=== PATIENT | male | born 1965 | race Caucasian/White ===

== ENCOUNTER → 2017-09-07 15:43 | Outpatient (CLI) | payer BC, SELFPAY | PROVIDERS: PCP Internal Medicine; Visit Provider Internal Medicine | DX: R07.9 Chest pain, unspecified (principal); R06.02 Shortness of breath | CPT/HCPCS: 93005 ==

== ENCOUNTER → 2017-09-08 07:37 | Outpatient (CLI) | payer BC, SELFPAY ==
--- NOTE | 2017-09-08 07:42 | XR_ITS ---
XR chest 2V HISTORY: ITS.REASON: CHEST PAIN, DYSPNEA ORDERING PHYSICIAN: Marvel Avalos PATIENT AGE: 52 years COMPARISON: None FINDINGS: The cardiomediastinal silhouette and pulmonary vascularity are within normal limits. The lungs are clear without infiltrates, suspicious nodules, or pleural effusions. No acute bony abnormalities. IMPRESSION: Negative chest, no acute finding
== END ==
PROVIDERS: Family Provider Internal Medicine; PCP Internal Medicine; Visit Provider Internal Medicine
DX: R07.9 Chest pain, unspecified (principal); R06.09 Other forms of dyspnea
CPT/HCPCS: 71046; 93017

== ENCOUNTER 2020-02-07 18:36 | Emergency (ER) | payer BC, SELFPAY ==
[2020-02-07 18:48] VITALS: BP 134/104; PULSE 107; RESP 16; TEMP 36.6; O2SAT 98; BMI 32.3
--- NOTE | 2020-02-07 18:48 | XR_ITS ---
PROCEDURE: XR HAND LT MIN 3V CLINICAL INDICATION: laceration Pain COMPARISON: No exams were available for comparison FINDINGS: There is a transverse fracture involving the base of the proximal phalanx of the thumb along the dorsal and ulnar margin. Bandage artifact is present at the 2nd finger. Cortical regularity involves the distal aspect of the 3rd metacarpal which may be seen with avascular necrosis. There is a faint metallic density in the thenar eminence region measuring 2 mm consistent with a foreign body. Other findings:None. IMPRESSION: Nondisplaced fracture proximal phalanx of the thumb with associated small metallic foreign body at the thenar eminence Dictated by: Trey Almanza MD 02/08/2020 05:23 Trey Almanza MD in [place] 02/08/2020 05:23
--- NOTE | 2020-02-07 18:53 | HMH.EDWNDL ---
ED Disposition Clinical Impression: Open fracture of first metacarpal bone of left hand Qualifiers: Encounter type: initial encounter Metacarpal location: base Fracture morphology: other fracture Fracture alignment: nondisplaced Qualified Code(s): S62.235B - Other nondisplaced fracture of base of first metacarpal bone, left hand, initial encounter for open fracture Disposition: Home, Self-Care Condition on Discharge: Good Instructions: DI for Laceration Repair Prescriptions: Amoxicillin/Potassium Clav [Augmentin 875-125 Tablet] 1 tab PO Q12H 7 Days #14 tab Transmission Status: Pending to [id number] Hydrocodone/Acetaminophen [[place] 7.5-325 Tablet] 1 tab PO TID PRN #12 tab PRN Reason: Moderate Pain Prescription Printed Referrals: Marvel Avalos [Primary Care Provider] - Cameron Gaxiola MD [Referring] - - Critical Care Critical Care Time: No Attestation: On 02/07/20, the high probability of a clinically significant, sudden or life threatening deterioration of the following system(s) required my full and direct attention, intervention and personal management. The time I documented below is in addition to time spent performing reported procedures but includes the following listed in this critical care notation. Medical Decision Making - Medical Records Medical records reviewed: Yes: I reviewed the patient's medical records. - Salvador Inquiry Pt receiving controlled substance: Yes Salvador was queried for this patient: No Reason not queried -: Emergent pt cond-no time Risks and benefits of using a controlled substance: were discussed with pt by me Vital Signs: 02/07/20 18:48 02/07/20 19:30 Temperature 98 F Temperature Source Oral Pulse Rate [Radial] 107 H 95 H Respiratory Rate 16 17 Blood Pressure [Right Arm] 134/104 H 134/83 Blood Pressure Mean [Right Arm] 114 100 Blood Pressure Source [Right Arm] Automatic Cuff Blood Pressure Position [Right Arm] Sitting Supine 02 Sat by Pulse Oximetry 98 99 Oxygen Delivery Method Room Air Room Air Orders (Tests/Meds): ED MEDICATIONS Discontinued Medications Generic Name Dose Route Start Last Admin Trade Name Freq PRN Reason Stop Dose Admin Hydrocodone Bitart/Acetaminophen 1 tab 02/07/20 18:48 02/07/20 19:02 Apap/Hydrocodone 325mg/7.5mg Tab PO 10/22/20 18:49 1 tab ONCE ONE Administration Cefazolin Sodium 1 gm 02/07/20 20:09 02/07/20 20:14 Cefazolin 1gm Vial IM 02/07/20 20:10 1 gm ONCE ONE Administration Protocol Ondansetron HCl 4 mg 02/07/20 20:13 02/07/20 20:20 Ondansetron 4mg/2ml Vial IV 02/07/20 20:14 Not Given ONCE ONE Ondansetron HCl 4 mg 02/07/20 20:19 02/07/20 20:20 Ondansetron 4mg Odt SL 02/07/20 20:20 4 mg ONCE ONE Administration Tetanus/Reduced Diphtheria/Acell Pertussis 0.5 ml 02/07/20 18:48 02/07/20 19:00 Tet/Diphth/Pert-Adult 0.5ml Syringe IM 02/07/20 18:49 0.5 ml .ONCE ONE Administration ORDERS Category Date Time Status XR hand LT min 3V Stat Exams 02/07/20 18:48 Taken - Radiology Data #1 Image(s): Hand Image Reviewed: Yes I reviewed the patient's radiology results Fracture of the base of the first metacarpal - Reevaluation(s) Time: 20:22 Reevaluation #1: Patient does have evidence of open fracture. I did speak with orthopedic surgeon on-call at [facility]. They have arranged for emergent follow-up with Dr. Gaxiola in the hand clinic tomorrow morning. Patient will be made n.p.o. at midnight. I will loosely approximate the skin. Thoroughly irrigated. Given 1 g Ancef in the emergency department. Sterile dressing placed. Patient must obtain follow-up or return to the emergency department immediately. Verbalized understanding. Medical Decision Narrative: Patient has lacerations to the left hand that will require suture repair. Patient appears to have full range of motion. No evidence of tendon laceration. X-ray will be obtained. Tet
[2020-02-07 19:30] VITALS: BP 134/83; PULSE 95; RESP 17; O2SAT 99
[2020-02-07 20:48] VITALS: BP 134/83; PULSE 93; RESP 15; TEMP 36.6; O2SAT 93
== END 2020-02-07 20:52 | disposition home or self-care (01) ==
PROVIDERS: Emergency Provider Emergency Medicine; PCP Internal Medicine
DX: S62.235B Other nondisplaced fracture of base of first metacarpal bone, left hand, initial encounter for open fracture (principal); S61.012A Laceration without foreign body of left thumb without damage to nail, initial encounter; S61.211A Laceration without foreign body of left index finger without damage to nail, initial encounter; W31.89XA Contact with other specified machinery, initial encounter; Y92.89 Other specified places as the place of occurrence of the external cause; Z23 Encounter for immunization; I10 Essential (primary) hypertension; Z79.899 Other long term (current) drug therapy
CPT/HCPCS: 12002; 73130; 90715; 96372; 99282

== ENCOUNTER → 2021-07-13 12:11 | Outpatient (CLI) | payer BC, SELFPAY | PROVIDERS: PCP Internal Medicine; Visit Provider Internal Medicine | DX: G47.33 Obstructive sleep apnea (adult) (pediatric) (principal); I10 Essential (primary) hypertension; R06.83 Snoring | CPT/HCPCS: G0399 ==

== ENCOUNTER → 2022-06-04 16:13 | Outpatient (CLI) | payer BC, SELFPAY ==
--- NOTE | 2022-06-04 16:16 | XR_ITS ---
FINAL REPORT CLINICAL HISTORY: LT SHOULDER PAIN FINDINGS: Internal and external rotation views of the left shoulder were obtained. There is no prior exam for comparison. There is no fracture or dislocation. There is acromioclavicular joint degenerative disease with a calcification along the superior joint. Soft tissues are normal. IMPRESSION: Degenerative disease with no acute osseous abnormality of the left shoulder. Reviewed, Interpreted and Dictated by Marianne Cavazos MD Transcribed by Marcela Johnson Authenticated and [facility]
== END ==
PROVIDERS: PCP Internal Medicine; Visit Provider Internal Medicine
DX: M25.512 Pain in left shoulder (principal)
CPT/HCPCS: 73030

== ENCOUNTER → 2023-02-22 14:47 | Outpatient (POV) | payer BC, SELFPAY | PROVIDERS: Visit Provider Specialist/Technologist | DX: Z00.00 Encounter for general adult medical examination without abnormal findings (principal) ==

== ENCOUNTER 2023-09-12 11:18 | Emergency (ER) | payer BC, SELFPAY ==
[2023-09-12] VITALS (9 sets, daily range): BP systolic 118–133; BP diastolic 77–90; PULSE 71–77; RESP 16–20; TEMP -6.6–36.8; O2SAT 96–100; BMI 31.0
--- NOTE | 2023-09-12 11:39 | CT_ITS ---
PROCEDURE INFORMATION: Exam: CT Abdomen And Pelvis Without Contrast Exam date and time: 09/12/2023 11:49 AM Age: 58 years old Clinical indication: Abdominal pain; Flank; Right; Additional info: R flank/cva pain, poss stone TECHNIQUE: Imaging protocol: Computed tomography of the abdomen and pelvis without contrast. Radiation optimization: All CT scans at this facility use at least one of these dose optimization techniques: automated exposure control; mA and/or kV adjustment per patient size (includes targeted exams where dose is matched to clinical indication); or iterative reconstruction. COMPARISON: DX CXR2V XR chest 2V 09/08/2017 7:45 AM FINDINGS: Liver: Normal. No mass. Gallbladder and bile ducts: Cholecystectomy Pancreas: Normal. No ductal dilation. Spleen: Normal. No splenomegaly. Adrenal glands: Normal. No mass. Kidneys and ureters: 3.5 millimeter distal RIGHT ureteral calculus causes dilatation of the RIGHT ureter, and RIGHT collecting system. The RIGHT kidney is edematous and there is RIGHT perirenal stranding. Nonobstructing renal calculi bilaterally Stomach and bowel: Unremarkable. No obstruction. No mucosal thickening. Appendix: No evidence of appendicitis. Intraperitoneal space: Unremarkable. No free air. No significant fluid collection. Vasculature: Unremarkable. No abdominal aortic aneurysm. Lymph nodes: Unremarkable. No enlarged lymph nodes. Urinary bladder: Unremarkable as visualized. Reproductive: Unremarkable as visualized. Bones/joints: Unremarkable. No acute fracture. Soft tissues: Unremarkable. IMPRESSION: 3.5 millimeter distal RIGHT ureteral calculus causes dilatation of the RIGHT ureter, and RIGHT collecting system. The RIGHT kidney is edematous and there is RIGHT perirenal stranding.
--- NOTE | 2023-09-12 11:40 | ED_ITS ---
Discharge Plan Disposition Patient Disposition: Home, Self-Care Condition: Good Prescriptions Prescriptions: New ketorolac 10 mg tablet 10 mg PO Q8H PRN (Reason: pain) Qty: 30 0RF Rx Instructions: maximum total duration of 5 days from all oral, intranasal, or parenteral formulations tamsulosin 0.4 mg capsule 0.4 mg PO DAILY Qty: 14 0RF ondansetron 4 mg tablet,disintegrating 4 mg PO Q8H PRN (Reason: nausea and vomiting) 5 Days Qty: 14 0RF oxycodone-acetaminophen [Percocet] 5-325 mg tablet 1 tab PO TID PRN (Reason: pain) Qty: 10 0RF No Action lisinopril 10 mg tablet 20 mg PO 90 Days azelastine 137 mcg (0.1 %) aerosol,spray 1 spray intranasal BID Qty: 30 2RF Rx Instructions: administer into each nostril levocetirizine [Xyzal] 5 mg tablet 5 mg PO DAILY Qty: 30 2RF allopurinol 300 mg tablet 300 mg PO 90 Days hydroxychloroquine 200 mg tablet PO Patient Comments: TAKE 1 TABLET BY MOUTH TWICE DAILY Vivitrol 380 mg suspension,extended rel recon IM Patient Comments: INJECT 380MG INTRAMUSCULARLY EVERY 28 DAYS meloxicam 7.5 mg tablet 7.5 mg PO DAILY Patient Comments: TAKE 1 TABLET BY MOUTH ONCE DAILY WITH FOOD Referrals Follow up/Referrals: Marvel Avalos MD [Primary Care Provider] - See instructions Satya Dejesus MD [Staff Physician] - See instructions Activity Restrictions/Add. Instructions Additional Instructions/Restrictions: You were seen in the ED today due to kidney stone. You have a 3.5 mm right distal ureter stone with back up into the kidney. Please stay hydrated at home. Take Toradol and Tylenol for pain. Small amount of painkillers has been provided for breakthrough pain. Follow-up with urology. Return to the ED if any symptoms worsen or if new concerning symptoms arise. Thank you. Clinical Impressions Clinical Impression: Kidney stone on right side Instructions Patient Instructions: DI for Kidney Stones Discharge ED Provider: Federico Rodríguez General Adult HPI General Chief complaint: PAIN Stated complaint: Pain Lower right back pain, trouble urinating Time Seen by Provider: 09/12/23 11:34 Mode of Arrival: Ambulatory Source of Information: Patient Limitations: No Limitations Description of Symptoms (Recalled from ER Triage Doc. by RN): Patient presents to ED with right side flank pain that started last night. patient reports pain and burning while urinating. Patient has hx of kidney stones in the past. Rates pain 8/10 at this time. History of Present Illness HPI narrative: Patient is a 58-year-old male with history of HTN who presents due to flank and back pain. Patient's is present to help provide history. Patient reports for the past 2 weeks he has been having intermittent right-sided back pain. Last night he began to have pain with urination and difficulty urinating. States the pain has also began to wrap around his right flank. States he has had nausea but no vomiting. Denies any fevers. Reports history of kidney stones, most recently approximately 10 years ago. Denies any urologic procedures for kidney stones in the past. Denies any hematuria. Related Data Home Medications Medication Instructions Recorded Confirmed allopurinol 300 mg tablet 300 mg PO 90 days 10/18/17 07/13/23 hydroxychloroquine 200 mg tablet ea PO 05/26/22 07/13/23 lisinopril 10 mg tablet 20 mg PO 90 days 09/29/22 07/13/23 meloxicam 7.5 mg tablet 7.5 mg PO DAILY 03/22/23 07/13/23 naltrexone microspheres 380 mg mg IM 03/22/23 07/13/23 intramuscular suspension,extended release (Vivitrol) Previous Rx's Medication Instructions Recorded azelastine 137 mcg (0.1 %) nasal 1 spray intranasal BID #30 mL 02/15/23 spray aerosol levocetirizine 5 mg tablet (Xyzal) 5 mg PO DAILY #30 tabs 02/15/23 ketorolac 10 mg tablet 10 mg PO Q8H PRN pain #30 tabs 09/12/23 ondansetron 4 mg disintegrating 4 mg PO Q8H PRN nausea and 09/12/23 tablet vomiting 5 days #14 tabs oxycodone-acetaminophen 5 mg-325 1 tab PO TID PRN pain #10 tabs 09/12/23 mg tablet (Percocet) tamsulosin 0.4 mg capsule 0.4 mg PO DAILY #14 caps 09/12/23 Allergies Allergy/AdvReac Type Severity Reaction Status Date / Time NO KNOWN ALLERGIES Allergy Uncoded 07/13/23 16:12 [facility] Disclaimer: The information contained in this section may have been updated after the patient was seen, as this information can be updated by other users. 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 Dysfunction of both eustachian tubes Bilateral serous otitis media Tinnitus Dizziness Hypertension Surgical History History of ear surgery Social History Smoking Status: Never smoker alcohol intake: current alcohol intake frequency: holidays/special occasions only substance use type: denies use current occupational status: employed Travel in the last 8 weeks: None household members: family housing: house current occupation: construction ROS Obtained: Yes All systems reviewed & no additional complaints except as documented Physical Exam General General appearance: alert and in no apparent distress Head Head exam: atraumatic, normocephalic and normal inspection Eye Eye exam: Present normal appearance, PERRL and EOMI ENT ENT exam: Present normal exam, normal oropharynx, mucous membranes moist, TM's normal bilaterally and normal external ear exam Neck Neck exam: Present normal inspection, full ROM and trachea midline; Absent meningismus or lymphadenopathy Chest Chest inspection: Present normal inspection and symmetric chest wall rise; Absent tenderness Respiratory Respiratory exam: Present normal lung sounds bilaterally; Absent respiratory distress Cardiovascular Cardiovascular exam: Present regular rate and normal rhythm; Absent JVD Abdominal Exam Abdominal exam: Present soft and normal bowel sounds; Absent distention, tenderness or guarding Extremities Exam Extremities exam: Present normal inspection, full ROM and normal capillary refill; Absent calf tenderness Back Exam Back exam: Present normal inspection and CVA tenderness (R); Absent tenderness Neurological Exam Neurological exam: Present alert and oriented X3 Psychiatric Psychiatric exam: Present normal affect and normal mood Skin Skin exam: Present warm, dry, intact and normal color Lymphatic Lymphatic Findings: no adenopathy Medical Decision Making Medical Records Medical records reviewed: Yes I reviewed the patient's medical records. [place] Inquiry Pt receiving controlled substance: No Vital Signs: 09/12/23 11:19 09/12/23 11:30 09/12/23 12:00 Temperature 98.3 F 20 F L Temperature Source Oral Pulse Rate 75 76 Pulse Rate [Right Radial] 77 Respiratory Rate 18 18 Blood Pressure 125/77 120/82 Blood Pressure [Right Arm] 131/82 Blood Pressure Mean Blood Pressure Mean [Right Arm] 98 Blood Pressure Source Blood Pressure Source [Right Arm] Automatic Cuff Blood Pressure Position Blood Pressure Position [Right Arm] Sitting 02 Sat by Pulse Oximetry 97 96 97 Oxygen Delivery Method Room Air Room Air Room Air 09/12/23 12:30 09/12/23 13:00 09/12/23 13:30 Temperature Temperature Source Pulse Rate 72 71 71 Pulse Rate [Right Radial] Respiratory Rate 18 18 20 Blood Pressure 123/86 118/89 119/86 Blood Pressure [Right Arm] Blood Pressure Mean Blood Pressure Mean [Right Arm] Blood Pressure Source Blood Pressure Source [Right Arm] Blood Pressure Position Blood Pressure Position [Right Arm] 02 Sat by Pulse Oximetry 98 100 97 Oxygen Delivery Method Room Air Room Air Room Air 09/12/23 14:01 09/12/23 14:30 09/12/23 14:49 Temperature 98.1 F Temperature Source Oral Pulse Rate 74 75 75 Pulse Rate [Right Radial] Respiratory Rate 18 16 Blood Pressure 130/90 133/87 133/87 Blood Pressure [Right Arm] Blood Pressure Mean 102 Blood Pressure Mean [Right Arm] Blood Pressure Source Automatic Cuff Blood Pressure Source [Right Arm] Blood Pressure Position Sitting Blood Pressure Position [Right Arm] 02 Sat by Pulse Oximetry 99 98 Oxygen Delivery Method Room Air Room Air Lab Data Lab Results 09/12/23 11:21: Urine Color Yellow, Urine Appearance Slightly cloudy, Urine pH 7.0, Ur Specific [place] 1.025, Urine Protein Negative, Urine Glucose (UA) Negative, Urine Ketones Negative, Urine Blood 1+, Urine Nitrate Negative, Urine Bilirubin Negative, Urine Urobilinogen 0.2, Ur Leukocyte Esterase Negative, Urine RBC 5-10, Urine WBC Occasional, Ur Squamous Epith Cells Occasional, Urine Bacteria Trace 09/12/23 11:25: WBC 10.9 H, RBC 4.99, Hgb 14.6, Hct 44.9, MCV 90.0, MCH 29.3, MCHC 32.6, RDW 14.5, Plt Count 228, MPV 9.0, Neut % (Auto) 75.5, Lymph % (Auto) 16.2, Sully % (Auto) 7.0, Eos % (Auto) 0.9, Baso % (Auto) 0.4, Neut # (Auto) 8.2 H, Lymph # (Auto) 1.8, Sully # (Auto) 0.8, Eos # (Auto) 0.1, Baso # (Auto) 0.0, Sodium 137, Potassium 4.1, Chloride 103, Carbon Dioxide 25, Anion Gap 13.1, BUN 17, Creatinine 1.40 H, Estimated Creat Clear 79, Estimated GFR 52 L, Est GFR ( Amer) 63, Glucose 104 H, Calcium 9.7, Total Bilirubin 0.4, AST 30, ALT 21, Alkaline Phosphatase 62, Total Protein 7.2, Albumin 4.3, Globulin 2.9, Albumin/Globulin Ratio 1.5 09/12/23 11:25 09/12/23 11:25 Orders (Tests/Meds): ED MEDICATIONS Discontinued Medications Generic Name Dose Route Start Last Admin Trade Name Freq PRN Reason Stop Dose Admin Hydromorphone HCl 0.5 mg 09/12/23 14:07 09/12/23 14:09 Hydromorphone 2mg/Ml Syringe IV 09/12/23 14:08 0.5 mg ONCE ONE Administration Lactated Ringer's 1,000 mls @ 999 mls/hr 09/12/23 11:39 09/12/23 11:56 Lactated Ringer's 1000 Ml Bag IV 09/12/23 12:39 999 mls/hr .Q1H1M ONE Administration Ketorolac Tromethamine 15 mg 09/12/23 11:39 09/12/23 11:56 Ketorolac 30mg/Ml Vial IV 09/12/23 11:40 15 mg ONCE ONE Administration Morphine Sulfate 4 mg 09/12/23 13:17 09/12/23 13:23 Morphine 4mg/Ml Syringe IV 09/12/23 13:18 4 mg ONCE ONE Administration Ondansetron HCl 4 mg 09/12/23 11:39 09/12/23 11:57 Ondansetron 4mg/2ml Vial IV 09/12/23 11:40 4 mg ONCE ONE Administration ORDERS Category Date Time Status CT abdomen pelvis wo con Stat Cat Scan 09/12/23 11:39 Completed CBC w/Auto Diff [Complete Blood Count Auto Diff] Stat Lab 09/12/23 11:25 Completed CMP [Comprehensive Metabolic Panel] Stat Lab 09/12/23 11:25 Completed Urinalysis and Microscopic Stat Lab 09/12/23 11:21 Completed Medical Decision Narrative: In summary, patient is 58-year-old male, evaluated in the emergency department today due to right flank and back pain. On arrival, patient is hemodynamically stable with normal vital signs. On examination, patient has right CVA tenderness. Differential diagnosis includes but is not limited to kidney stone, pyelonephritis, musculoskeletal strain, hydronephrosis. Patient given IV Toradol, IV Zofran, IV morphine, 1 L LR bolus. Workup initiated including CBC, CMP, urinalysis, CT Abdo/pelvis without contrast. Labs independently interpreted by me and significant for creatinine 1.4. Imaging independently interpreted by me and significant for CT abdomen/pelvis demonstrating 3.5 mm right distal ureteral calculus with upstream hydronephrosis and perinephric fat stranding. On reevaluation, patient's pain is not controlled. Patient given IV Dilaudid with resolution of pain. Given his acute kidney injury and hydronephrosis in setting of kidney stone, Dr. Dejesus, urology, consulted and case discussed. Per urology, patient is appropriate for discharge if his pain is controlled. In shared decision-making with patient and family, they are agreeable to this plan. Referral provided. Prescriptions for Toradol, Flomax, Percocet provided. Patient counseled on home care, given strict return precautions and agreeable to plan. Additional history was provided by family. I considered admitting the patient to the hospital for pain control, and in shared decision-making with patient and family, decided on outpatient management. Critical Care Critical Care Time Critical Care Time: No
[2023-09-12 11:42] LABS: Microscopic, Urine URINE MICROSCOPIC (MICROSCOPIC)
[2023-09-12 11:45] LABS: Chloride 103 mmol/L (98-107)
[2023-09-12 11:46] LABS: Bilirubin,Urine Negative (Negative); Blood, Urine 1+ (Negative); Color,Urine YELLOW (Yellow); Glucose,Urine (UA) Negative (Negative); Ketones,Urine Negative (Negative); Leukocyte Esterase,Urine Negative (Negative); Nitrate,Urine Negative (Negative); Protein,Urine Negative (Negative); Specific Gravity, Urine 1.025 (1.005-1.030); Urobilinogen,Urine 0.2 EU/dl (0.2)
[2023-09-12 11:46] LABS: Potassium 4.1 mmoL/L (3.5-5.1); Sodium 137 mmol/L (136-145)
[2023-09-12 11:49] LABS: Appearance,Urine Slightly Cloudy (Clear)
[2023-09-12 11:49] LABS: Alanine Aminotransferase 21 U/L (12-78); Albumin Level 4.3 g/dl (3.5-5.0); Albumin/Globulin Ratio 1.5 (1.1-1.8); Alkaline Phosphatase 62 U/L (38-126); Anion Gap 13.1 mEq/L (5-15); Aspartate Amino Transferase 30 U/L (17-59); Bilirubin,Total 0.4 mg/dl (0.2-1.3); Blood Urea Nitrogen 17 mg/dl (9-20); Calcium 9.7 mg/dl (8.4-10.2); Carbon Dioxide 25 mmol/L (22.0-30.0); Creatinine Clearance Estimated 79 mL/min (50-200); Estimated Glomerular Filt Rate 52 ml/min (>60); GFR (African American) 63 ML/MIN (>60); Globulin 2.9 g/dL (1.3-3.2); Glucose 104 mg/dl (74-100); Total Protein,Serum 7.2 g/dl (6.3-8.2)
[2023-09-12 11:56] LABS: Basophils % 0.4 % (0.1-2.0); Eosinophils # 0.1 K/mm3 (0.0-0.4); Eosinophils % 0.9 % (0.1-12.0); Hematocrit 44.9 % (42.0-52.0); Hemoglobin 14.6 g/dL (14.1-18.0); Lymphocytes # 1.8 K/mm3 (0.7-4.5); Lymphocytes % 16.2 % (10-50); Mean Corpuscular HGB Conc 32.6 g/dL (31.8-35.4); Mean Corpuscular Hemoglobin 29.3 pg (27.0-31.2); Monocytes # 0.8 K/mm3 (0.1-1.0); Neutrophils # 8.2 K/mm3 (1.8-7.8); Neutrophils % 75.5 % (37.0-80.0); Platelet Count 228 K/mm3 (142-424); Red Blood Count 4.99 M/mm3 (4.60-6.20); Red Cell Distribution Width 14.5 % (11.5-17.5); White Blood Count 10.9 K/mm3 (4.8-10.8)
[2023-09-12] MEDS: LACTATED RINGERS 1000ML 1,000 ML 999 ML IV (11:56)
[2023-09-12] MEDS: KETOROLAC 30MG/ML VIAL 15 MG IV (11:56)
[2023-09-12] MEDS: ONDANSETRON 4MG/2ML VIAL 4 MG IV (11:57)
[2023-09-12 12:03] LABS: Bacteria,Urine Trace /lpf; Squamous Epithelial Cell,Urine Occasional #/hpf (0-5); WBC,Urine Occasional #/hpf (0-3)
--- NOTE | 2023-09-12 13:14 | PC.NURSE ---
KOBE COLEMAN SPEAKING WITH DR ESCAMILLA WITH UROLOGY
[2023-09-12] MEDS: MORPHINE 4MG/ML SYRINGE 4 MG IV (13:23)
[2023-09-12] MEDS: HYDROMORPHONE 2MG/ML SYRINGE 0.5 MG IV (14:09)
--- NOTE | 2023-09-12 14:21 | PC.NURSE ---
rounded on pt, stated no needs at this time.
== END 2023-09-12 14:50 | disposition home or self-care (01) ==
PROVIDERS: Emergency Provider Student in an Organized Health Care Education/Training Program; PCP Internal Medicine
DX: R10.31 Right lower quadrant pain (principal); N20.0 Calculus of kidney; M54.59 Other low back pain; R30.0 Dysuria; I10 Essential (primary) hypertension
CPT/HCPCS: 74176; 80053; 81001; 85025; 96361; 96374; 96375; 99285; J2405; J7120

== ENCOUNTER 2024-08-08 14:05 | Outpatient (CLI) | payer BC, SELFPAY ==
--- NOTE | 2024-08-08 | CA_ITS ---
APPROVED REPORT EXAM: Comprehensive 2D, Doppler, and color-flow Echocardiogram Card Table Attendant: Vicenta Rosario, RCS, RVS Ht: 5 ft 9 in Wt: 231lbs BSA: 2.20 BP: 166/102 mmHg Indications: CP, SOB, Abn EKG, HTN, Fatigue, Palpitations Echo Enhancing Agent Comments: Poor acoustics due to chest circumference 2D Dimensions IVSd 1.14 cm LVEF (Visual) 49.70 % PWd 1.12 cm LA Volume 69.90 mL LVDd 4.76 cm LA Volume Index 31.80 mL/m2 (M/F) 16-34 LVDs 3.56 cm EF AP4 51.20 % Aortic Root 3.09 cm GL Strain -16.8 % Left Atrium 3.90 cm RVID Base (AP4) 3.86 cm (M/F) 2.5-4.1 LVOT 2.10 cm (M/F) 1.5-2.5 M-Mode Dimensions LVDd 4.76 cm (3.5-5.7) Ao Diam 2.82 cm (2.0-3.7) LVDs 3.56 cm (3.5-5.7) IVSd 1.14 cm (0.6-1.1) PWd 1.12 cm (0.6-1.1) EPSs 0.42 cm FS 25.20% TAPSE 2.00 (<1.7) LV Diastology E Decel Time 208 (160-240 msec) E/A Ratio 0.75 MED E' 6.0 (>= 7 cm/sec) MED A' 10.20 cm/s E'/MED E' Ratio 12.15 (<= 14) LAT E' 8.6 (>= 10 cm/sec) LAT A' 13.20 cm/s E/LAT E' Ratio 8.48 (<= 14) Aortic Valve LVOT Max 84.0 (70-110 cm/s) RADHA Index 1.49 cm2/m2 LVOT VTI 22.57 cm AoV Peak Yovany. 117.0 (50-130 cm/s) AO Peak GR. 7.00 mmHg AO Mean GR. 2.80 (<5 mmHg) AO VTI 23.8 (18-25 cm) RADHA (VTI) 3.28 (2.5-4.5 cm2) Mitral Valve MV E Max Yovany. 73.0 (40-130 cm/s) MV A Velocity 97.0 (40-130 cm/s) E/A Ratio 0.75 MV Decel. Time 208 (160-240 ms) Left Ventricle The left ventricle is normal size. The left ventricular systolic function is normal. The left ventricular ejection fraction is within the normal range. There is increased LV wall thickness. There is normal LV segmental wall motion. Transmitral Doppler flow pattern suggests impaired LV relaxation. LVEF is 55%. Right Ventricle The right ventricle is normal size. The right ventricular systolic function is normal. Atria Left atrium is mildly dilated. The right atrium size is normal. There is no Doppler evidence of interatrial shunt. Aortic Valve Aortic valve is mildly thickened. There is no aortic valvular stenosis. Trace aortic regurgitation. Mitral Valve The mitral valve is normal in structure. No evidence of mitral valve stenosis. Mild mitral regurgitation. Tricuspid Valve Tricuspid valve is grossly normal in structure and function. Trace tricuspid regurgitation. There is insufficient TR jet to estimate RVSP. Pulmonic Valve The pulmonary valve is normal in structure. Trace pulmonic regurgitation. Great Vessels The aortic root is normal in size. IVC is normal in size and collapses >50% with inspiration. Pericardium There is no pericardial effusion. An epicardial fat pad is present. Other Information Study Quality: Technically Difficult Conclusion Technically difficult study due to poor acoustic windows. Normal biventricular systolic function. Mild LA dilation. Mild MR. Electronically signed by : Naomy Renee MD 08/08/2024 22:56:47
== END 2024-08-08 23:59 | disposition home or self-care (01) ==
LOC: RT 14:06
PROVIDERS: PCP Internal Medicine; Visit Provider Physician Assistant
DX: R07.9 Chest pain, unspecified (principal); R94.31 Abnormal electrocardiogram [ECG] [EKG]; R06.00 Dyspnea, unspecified
CPT/HCPCS: 93306

== ENCOUNTER 2024-08-21 06:18 | Outpatient (CLI) | payer BC, SELFPAY ==
--- NOTE | 2024-08-21 | CA_ITS ---
APPROVED REPORT Exam: Pharmacologic Technologist: Tonya Brandon Ht: 5 ft 9 in Wt: 231 lbs BSA: 2.20 m2 HR: 62 bpm BP: 139/96 mmHg Stress Test Details Test: Lexiscan HR Resting HR: 62 bpm Max Heart Rate (APMHR): 163.684256 bpm Max HR Achieved: 84 bpm Target HR (85% APMHR): 138.768167 bpm % of APMHR: 51.53 Recovery HR: 72 bpm BP Resting BP: 139.0/96.0 mmHg Max BP: 140.0/95.0 mmHg Recovery BP: 133.0/97.0 mmHg ECG Resting ECG: Sinus rhythm Stress ECG Conclusion Symptoms: Dyspnea, dizziness, nausea Arrhythmias/Ectopy: None ST-T Changes: Less than 1 mm Conclusion: EKG unremarkable due to Lexiscan infusion. Electronically signed by : Naomy Renee MD 08/21/2024 12:15:49
--- OUTSIDE RECORDS SUMMARY | 2024-08-21 06:21 | XMS_ITS ---
Author Organization Unknown Medications Medication Instructions Effective Dates (start - stop) Status lisinopril 10 MG Oral Tablet 202 06-19-16:00:00.000+00 :00 - Completed allopurinol 300 MG Oral Tablet 2 [id number]:00:00.000+00 :00 - Completed metformin hydrochloride 500 MG Oral Tablet 4443-72-26Q78:00:00.000+00 :00 - Completed lisinopril 10 MG Oral Tablet 202 06-18-03:00:00.000+00 :00 - Completed amlodipine 5 MG Oral Tablet 2021:00:00.000+00 :00 - Completed naltrexone 380 MG Injection [Vivitrol] 4994-48-69J02:00:00.000+00 :00 - Completed meloxicam 7.5 MG Oral Tablet 06-22-16:00:00.000+00 :00 - Completed lisinopril 10 MG Oral Tablet 05-29-10:00:00.000+00 :00 - Completed meloxicam 7.5 MG Oral Tablet 06-19-24:00:00.000+00 :00 - Completed allopurinol 300 MG Oral Tablet 2 [id number]:00:00.000+00 :00 - Completed naltrexone hydrochloride 50 MG Oral Tablet 8222-37-73W74:00:00.000+00 :00 - Completed allopurinol 300 MG Oral Tablet 2 412-92-24E42:00:00.000+00 :00 - Completed lisinopril 10 MG Oral Tablet 05-26-07:00:00.000+00 :00 - Completed {21 (methylprednisolone 4 MG Oral Tablet) } Pack [id number]:00:00.000+00 :00 - Completed allopurinol 300 MG Oral Tablet 2 [id number]:00:00.000+00 :00 - Completed - 6800-30-96T77:00 :00.000+00 :00 - Completed {21 (methylprednisolone 4 MG Oral Tablet) } Pack [id number]:00:00.000+00 :00 - Completed hydroxychloroquine sulfate 2 00 MG Oral Tablet 7347-70-50E97:00:00.000+00 :00 - Completed phentermine hydrochloride 37 .5 MG Oral Tablet 2311-45-12B15:00:00.000+00 :00 - Completed hydroxychloroquine sulfate 2 00 MG Oral Tablet [id number]:00:00.000+00 :00 - Completed phentermine hydrochloride 37 .5 MG Oral Tablet [id number]:00:00.000+00 :00 - Completed hydroxychloroquine sulfate 2 00 MG Oral Tablet [id number]:00:00.000+00 :00 - Completed hydroxychloroquine sulfate 2 00 MG Oral Tablet [id number]:00:00.000+00 :00 - Completed hydroxychloroquine sulfate 2 00 MG Oral Tablet [id number]:00:00.000+00 :00 - Completed phentermine hydrochloride 37 .5 MG Oral Tablet [id number]:00:00.000+00 :00 - Completed hydroxychloroquine sulfate 2 00 MG Oral Tablet [id number]:00:00.000+00 :00 - Completed hydroxychloroquine sulfate 2 00 MG Oral Tablet [id number]:00:00.000+00 :00 - Completed hydroxychloroquine sulfate 2 00 MG Oral Tablet [id number]:00:00.000+00 :00 - Completed hydroxychloroquine sulfate 2 00 MG Oral Tablet [id number]:00:00.000+00 :00 - Completed allopurinol 300 MG Oral Tablet [id number]:00:00.000+00 :00 - Completed allopurinol 300 MG Oral Tablet 2 [id number]:00:00.000+00 :00 - Completed Patient Care team information Name Category Status Period Participants - - Proposed period not known -
--- OUTSIDE RECORDS SUMMARY | 2024-08-21 06:21 | XMS_ITS | Continuity of Care Document ---
Author Organization [facility] [address] Address [address] [place] [address] Care Team Providers Care Recruiting And Selection Consultant Name Role Phone RADHA CLAIRE Primary Care Provider Assessment No assessment recorded. Plan of Treatment Reminders Order Date Submit Date Provider Last Modified By Organization Details Last Modified Time Details Appointments RECHECK 2025 03:40P M PACO BYRNES MD Not available Not available Not available Lab None recorded . Referral None recorded . Procedures None recorded . Surgeries None recorded . Imaging None recorded . Medication Orders None recorded . Patient TargetsNo targets recorded. Patient InstructionsNo instructions recorded. Reason for Referral None Reported. Results Created Date Observation Date Name Description Value Unit Range Abnormal Flag Note LastModifiedBy Organization Detail LastModifiedTime 08/04/1908/01/2024 audio gram No observ ation record ed. BARCODE Not Available 2024 12:49:18 Result Notes None recorded. Problems No Known Problems Procedures Surgical History Date Name Laterality Status Provider Name and Address Organization Details Recorded Time 5 Tympanogram completed KATIANA THRASHER , AUD [address] [place], [address], [facility] 08/01/2024 15:45:30 5 Audiogram completed KATIANA THRASHER , AUD [address] [place], [address], [facility] 08/01/2024 15:45:28 5 Debridement Mastoid Cavity completed Allan Horton [facility] 08/01/2024 16:12:54 0 OT Manual Therapy cancelled CACHORRO HARTMAN, OTR/L, CHT [address] [place], [address], [facility] 02/18/2020 10:01:42 0 Orthotic, HFO, Static Custom completed CACHORRO HARTMAN OTR/L, CHT [address] [place], [address], [facility] 02/08/2020 11:04:03 0 OT Evaluation - Moderate complexity completed CACHORRO HARTMAN OTR/L, CHT [address] [place], [address], [facility] 02/08/2020 11:03:58 9 Injection Joint/Bursa, Small completed CHARU KRAMER MD [address] [place], [address], [facility] 05/22/2018 13:46:40 Imaging Results None recorded. Procedure Notes None recorded. Medical Equipment None Reported. Allergies No known drug allergies Medications Name Sig Start Date Stop Date Status Note LastModified by Organization Details LastModified Time metoprolol succinate ER 50 mg tablet,exte nded release 24 hr TAKE 1 TABLET BY MOUTH ONCE DAILY active Not Available Not Available No t Available meloxicam 15 mg tablet TAKE 1 TABLET BY MOUTH ONCE DAILY active Not Available Not Available No t Available naltrexone 50 mg tablet TAKE 1 TABLET BY MOUTH ONCE DAILY FOR ALCOHOL DEPENDENC Y 01/30 completed Not Available Not Available Not Available ketorolac 10 mg tablet TAKE 1 TABLET BY MOUTH EVERY 8 HOURS NEEDED FOR PAIN 11/15 completed Not Available Not Available Not Available meloxicam 7.5 mg tablet TAKE 1 TABLET BY MOUTH ONCE DAILY WITH FOOD CAN TAKE 1 ADDITIONA L TABLET DAILY IF NEEDED FOR FLAIR 01/30 completed Not Available Not Available Not Available oxycodone-a cetaminophe n 5 mg-325 mg tablet Take 1 tablet every 4-6 hours by oral route as needed. 11/15 completed Not Available Not Available Not Available ofloxacin 0.3 % ear drops INSTILL 4 TO 5 DROPS INTO AFFECTED EAR(S) TWICE DAILY FOR 7 DAYS 01/30 completed Not Available Not Available Not Available tamsulosin 0.4 mg capsule TAKE 1 CAPSULE BY MOUTH ONCE DAILY 11/15 completed Not Available Not Available Not Available cephalexin 500 mg capsule TAKE 1 CAPSULE BY MOUTH THREE TIMES DAILY 11/15 completed Not Available Not Available Not Available lisinopril 10 mg tablet TAKE 1 TABLET BY MOUTH ONCE DAILY active Not Available Not Available No t Available allopurinol 300 mg tablet TAKE 1 TABLET BY MOUTH ONCE DAILY active Not Available Not Available No t Available gabapentin 100 mg capsule Take 1 capsule every day by oral route at bedtime. 01/04 completed Not Available Not Available Not Available azelastine 137 mcg (0.1 %) nasal spray USE 1 SPRAY(S) IN EACH NOSTRIL TWICE DAILY 11/15 completed Not Available Not Available Not Available hydroxychlo roquine 200 mg tablet TAKE 1 TABLET BY MOUTH TWICE DAILY active Not Available Not Available No t Available methylpredn isolone 4 mg tablets in a dose pack TAKE BY MOUTH DIRECTED ON INSIDE OF PACKAGE 01/30 completed Not Available Not Available Not Available ondansetron 4 mg disintegrat ing tablet DISSOLVE 1 TABLET IN MOUTH EVERY 8 HOURS NEEDED FOR NAUSEA AND VOMITING FOR 5 DAYS 11/15 completed Not Available Not Available Not Available tadalafil 10 mg tablet TAKE 1 TABLET BY MOUTH ONCE DAILY active Not Available Not Available No t Available ibuprofen 02/07 completed Not Available Not Available Not Available naproxen 02/07 completed Not Available Not Available Not Available Glucosamine 02/07 completed Not Available Not Available Not Available Vivitrol 380 mg intramuscul ar suspension, extended release INJECT 380MG INTRAMUSC ULARLY EVERY 28 DAYS 11/15 completed Not Available Not Available Not Available fluocinolon e acetonide oil 0.01 % ear drops INSTILL 5 DROPS INTO THE RIGHT EAR CANAL BY OTIC ROUTE TWICE DAILY FOR 10 DAYS THEN NEEDED active Not Available Not Available No t Available levocetiriz ine 5 mg tablet TAKE 1 TABLET BY MOUTH ONCE DAILY 11/15 completed Not Available Not Available Not Available Bioflex 02/07 completed Not Available Not Available Not Available Vitals Date Recorded Body height Body mass index (BMI) Body weight Body temperature Heart rate Systolic blood pressure Diastolic blood pressure Provider Name and Address Organization Details Last Updated DateTime 5 177.8 cm 32.9 kg/m2 852565. 65 g 98.1 [degF] 71 /min 131 mm[Hg] 94 mm[Hg] Denisa Johnson [facility] 5 15:14:14 Social History Question Answer Notes LastModified by Organizat ion Details LastModified Time Tobacco Smoking Status Never Smoker Elaine Singer tosin, [facility] 05/22/2018 13:48:27 What Is Your Level Of Alcohol Consumption? 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 Right Information not available 05/22/2018 Which Hand Is Involved? Right Information not available 05/22/2018 Marital Status Informatio n not available 05/22/2018 What Was The Date Of Your Most Recent Tobacco Screening? 08/08/2018 Information not available 06/05/2019 Do You Use Any Illicit Or Recreational Drugs? No Information not available 05/22/2018 Sex: Male Functional Status None recorded. Mental Status None recorded. Family History Relationship Description Onset Age of this Age Resolved Age Notes LastModified by Organization Details LastModified Time Father No current problems or disability Not available 05/22 13:47:48 Mother No current problems or disability Not available 05/22 13:47:48 Medical History Condition Response Gout Y Kidney Stones Y Hyperthyroidism N Heart Arrhythmia N Emphysema N Esophagus/swallowing troubles N Glaucoma N Depression N Hypothyroidism N Lung Disease N Anesthesia Complications N Anxiety Disorder N Arthritis Y Hearing Loss Y Acid Reflux (GERD) Y Cancer N Stroke N Hoarseness N Alcohol Overuse/Alcohol Abuse N High Cholesterol N Snoring problems Y Liver Disease N Headaches N Kidney Disease N Allergies/Hayfever N Heart Problems N Mental handicap N Ear or Hearing Problems Y Gallbladder Disease N Migraines N Thyroid Problems N Goiter N Anemia N Immune System Disorder N Chest Pain N Stomach trouble N Ulcers N Heart Attack ([place]) N Diabetes N Rheumatic Fever N Bleeding Disorder N Tuberculosis N AIDS/HIV N Hyperlipidemia N Asthma N Epilepsy/Seizures N Sleep Disorder N Hepatitis N Heart Disease N Hypertension Y Immunizations Vaccine Type Date Status Note Provider Nam e and Address Organization Details Recorded Time Influenza, MDCK, quadrivalent, PF 04/02/2020 completed Jeanne Shad null, [facility] 01/31/2024 14:56:03 COVID-19 vaccine, vector-nr, rS-Ad26, PF, 0.5 mL 12/10/2020 completed Jeanne Sahd null, [facility] 01/31/2024 14:56:03 Tdap 02/07/2020 completed Jeanne Shad null, [facility] 01/31/2024 14:56:03 Influenza, split virus, quadrivalent, PF 01/19/2016 completed Jeanne Shad null, [facility] 01/31/2024 14:56:03 Influenza, split virus, quadrivalent, PF 01/20/2017 completed Jeanne Shad null, [facility] 01/31/2024 14:56:03 Past Encounters Encounter ID Performer Location Encounter Start Date Encounter Closed Date Diagnosis/Indication Diagnosis SNOMED-CT Code Diagnosis ICD10 Code Diagnosis Note [id number] PACO BYRNES MD [place] [facility] [address] [place] [address] 08/01/2024 14:56:13 08/07/2024 12:58:40 Dysfunction of left eustachian tube 4114177784 977825 H69.92 *01/06/24 S/p LMT Tube (T-tube) Placement with mastoid debridemen t- 01/31/[address] and patent, left TM is less retracted than it was before surgery; cavity is nice and clear today08/01- tube is present and patent Serous rocco tis media of left ear 1086279277 676047 H65.92 *01/06/24 S/p LMT Tube (T-tube) Placement Retraction of tympanic membrane 18106415 H73.899 severe- 01/31/24 retraction looks much better s/p LMT placement Eczema of external auditory canal 56964419 H60.549 Chronic le ft mastoiditis 8164902630 571092 H70.12 Asymmetric al sensorineural hearing loss 011545133 H90.5 08/01/24-a udiogram [id number] LIZA [facility] [address] [place] [address] 08/01/2024 15:26:08 08/01/2024 16:06:09 Dysfunction of bilateral eustachian tubes 9551774902 599391 H69.93 Conductive hearing loss, bilateral 453574898 H90.0 Health Concerns Section Related Observation LastModified by Organization Detai ls LastModified Time None Recorded Concern Status LastModified by Organization Details LastModified Time None Recorded Payers Encounter Date Sequence Insurance Name Policy Number Policy Irene Covered Member ID Irene Member ID Guarantor Name 08/01/2024 1 [place]) [id number] Marek Brown [id number] Marek Brown Notes Date Note Type Note Provider Name and Address Organization Details Recorded Time 08/01/2024 text/html Rodrigo visits us in office today to follow up on ETD and hearing loss. Pt has not presented with infection in either ear. He notes experiencing itching in the right ear recently. Pt does use Q-tips regularly to clean the ears. PACO BYRNES MD [facility] [place], [address], [place] [facility] 08/01/2024 16:18:52
--- OUTSIDE RECORDS SUMMARY | 2024-08-21 06:21 | XMS_ITS | Continuity of Care Document ---
[facility] [address] [place] [address] Care Team Providers Care Husker Operator Name Role Phone RADHA CLAIRE Primary Care Provider Assessment No assessment recorded. Plan of Treatment Reminders Order Date Submit Date Provider Last Modified By Organization Details Last Modified Time Details Appointments RECHECK 2025 03:40P M PACO BYRNES MD Not available Not available Not available Lab None recorded. Referral None recorded. Procedures None recorded. Surgeries None recorded. Imaging None recorded. Medication Orders DermOtic Oil 0.01 % ear drops 2024 04 025 [facility], [address], [address], 08/02/2024 11:06:32 Patient TargetsNo targets recorded. Patient Instructions Encounter Date Encounter Id Patient Instructions Last Modified By Organization Details Last Modified Time 08/01/2024 [id number] 1. Audiogram obtained in office today. Results discussed with patient. 2. Left Mastoid Debridement performed in office today Full risks, complications, and benefits of non-operative intervention have been thoroughly discussed. Understanding was expressed, informed consent given, and we will proceed with the discussed treatment plan. There were no questions for me at the end of the office visit. 3. Rx- Dermotic oil ear drops 5 drops into the right ear canal BID X 10 days, then prn 4. F/u in 12 months with audio [email or web address] Not available 08/01/2024 16:15:05 Hearing testing shows moderate conductive hearing loss in his left ear. He had debris in his mastoid cavity and simple debridement was performed. His left ear tube is in good position and functioning well. He is maximally treated at this point and should consider hearing aid for his left ear and we talked about that today. He has eczematous otitis externa of his right ear that we will treat with topical Derm otic and I counseled him about Q-tip use. Not available 08/01/2024 16:18:48 Reason for Referral None Reported. Results Created Date Observation Date Name Description Value Unit Range Abnormal Flag Note LastModifiedBy Organization Detail LastModifiedTime 08/04/19 25 08/01/2024 audio gram No observ ation record ed. BARCODE Not Available 2024 12:49:18 Result Notes None recorded. Problems No Known Problems Procedures Surgical History Date Name Laterality Status Provider Name and Address Organization Details Recorded Time 5 Tympanogram completed KATIANA THRASHER , AUD [address] [place], [address], [facility] 08/01/2024 15:45:30 5 Audiogram completed KATIANA THRASHER , AUD [address] [place], [address], [facility] 08/01/2024 15:45:28 5 Debridement Mastoid Cavity completed Allan Horton [facility] 08/01/2024 16:12:54 0 OT Manual Therapy cancelled CACHORRO HARTMAN OTR/L, CHT [address] [place], [address], [facility] 02/18/2020 10:01:42 0 Orthotic, HFO, Static Custom completed CACHORRO HARTMAN OTR/L, CHT [address] [place], [address], [facility] 02/08/2020 11:04:03 0 OT Evaluation - Moderate complexity completed CACHORRO HARTMAN OTR/L, CHT [address] [place], [address], [facility] 02/08/2020 11:03:58 9 Injection Joint/Bursa, Small completed CHARU KRAMER MD [address] [place], [address], [facility] 05/22/2018 13:46:40 Imaging Results None recorded. [...] Updated DateTime 5 177.8 cm 32.9 kg/m2 150859. 65 g 98.1 [degF] 71 /min 131 mm[Hg] 94 mm[Hg] Denisa Johnson [facility] 5 15:14:14 Social History Question Answer Notes LastModified by Organizat ion Details LastModified Time Tobacco Smoking Status Never Smoker Elaine leahy, [facility] 05/22/2018 13:48:27 What Is Your Level Of Alcohol Consumption? 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 05/22/2018 Which Of Your [...] Arrhythmia N Emphysema N Esophagus/swallowing troubles N Hypothyroidism N Glaucoma N Lung Disease N Depression N Anesthesia Complications N Anxiety Disorder N Hearing Loss Y Arthritis Y Acid Reflux (GERD) Y Cancer N Stroke N Hoarseness N Alcohol Overuse/Alcohol Abuse N High Cholesterol N Liver Disease N Snoring problems Y Headaches N Kidney Disease N Allergies/Hayfever N Heart Problems N Mental handicap N Ear or Hearing Problems Y Gallbladder Disease N Migraines N Thyroid Problems N Goiter N Anemia N Immune System Disorder N Chest Pain N Stomach trouble N Heart Attack ([place]) N Ulcers N Diabetes N Rheumatic Fever N Bleeding Disorder N Tuberculosis N AIDS/HIV N Hyperlipidemia N Asthma N Epilepsy/Seizures N Sleep Disorder N Hepatitis N Heart Disease N Hypertension Y Immunizations Vaccine Type Date Status Note Provider Nam e and Address Organization Details Recorded Time Influenza, MDCK, quadrivalent, PF 04/02/2020 completed [facility] 14:56:03 COVID-19 vaccine, vector-nr, rS-Ad26, PF, 0.5 mL 12/10/2020 completed [facility] 01/31/[facility]24 14:56:03 Tdap 02/07/2020 completed [facility] 01/31/2024 14:56:03 Influenza, split virus, quadrivalent, PF 01/19/2016 [facility] 01/31/2024 14:56:03 Influenza, split virus, quadrivalent, PF 01/20/2017 [facility] 01/31/[facility]24 14:56:03 Past Encounters Encounter ID Performer Location Encounter Start Date Encounter Closed Date Diagnosis/Indication Diagnosis SNOMED-CT Code Diagnosis ICD10 Code Diagnosis Note [id number] PACO BYRNES MD [facility] [address] [place] [address] 08/01/2024 14:56:13 08/07/2024 12:58:40 Dysfunction of left eustachian tube [id number] 177104 H69.92 *01/06/24 S/p LMT Tube (T-tube) Placement with mastoid debridemen t- 01/31/[address] and patent, left TM is less retracted than it was before surgery; cavity is nice and clear today08/01- tube is present and patent Serous rocco tis media of left ear 4432636960 586244 H65.92 *01/06/24 S/p LMT Tube (T-tube) Placement Retraction of tympanic membrane 36975107 H73.899 severe- 01/31/24 retraction looks much better s/p LMT placement Eczema of external auditory canal 48365617 H60.549 Chronic le ft mastoiditis 9957196458 674077 H70.12 Asymmetric al sensorineural hearing loss 918502291 H90.5 08/01/24-a udiogram [id number] LIZA [facility] [address] [place] [address] 08/01/2024 15:26:08 08/01/2024 16:06:09 Dysfunction of bilateral eustachian tubes 8154413171 210918 H69.93 Conductive hearing loss, bilateral 941314122 H90.0 Health Concerns Section Related Observation LastModified by Organization Detai ls LastModified Time None Recorded Concern Status LastModified by Organization Details LastModified Time None Recorded Payers Encounter Date Sequence Insurance Name Policy Number Policy Irene Covered Member ID Irene Member ID Guarantor Name 08/01/2024 1 [employer]: [place] [employer] ([place]) [id number] Marek Brown Jr [id number] Marek Brown Notes Date Note Type Note Provider Name and Address Organization Details Recorded Time 08/01/2024 text/html Rodrigo visits us in office today to follow up on ETD and hearing loss. Pt has not presented with infection in either ear. He notes experiencing itching in the right ear recently. Pt does use Q-tips regularly to clean the ears. PACO BYRNES MD [address] [place] [address], [address], [facility] 08/01/2024 16:18:52
--- OUTSIDE RECORDS SUMMARY | 2024-08-21 06:21 | XMS_ITS | Data Portability ---
Author Organization [facility] HARMAN HustonS CAMDEN CLOSED Address [address] [place] [address] Care Team Providers Care Steel Roller Name Role Phone RADHA CLAIRE Primary Care Provider Assessment No assessment recorded. Plan of Treatment Reminders Order Date Submit Date Provider Last Modified By Organization Details Last Modified Time Details Appointments RECHECK 2025 03:40P M PACO BYRNES MD Not available Not available Not available Lab None recorded. Referral None recorded. Procedures None recorded. Surgeries None recorded. Imaging electroca rdiogram 2023 024 [email or web address] [facility], [address] [facility] , [address], [place], [address], 12/16/2023 15:43:01 Medication Orders DermOtic Oil 0.01 % ear drops 2024 025 [facility], [address], [place], [address], 08/02/2024 11:06:32 Patient TargetsNo targets recorded. Patient Instructions Encounter Date Encounter Id Patient Instructions Last Modified By Organization Details Last Modified Time 11/16/2023 [id number] 1. Recommended L MT Tube (T-Tube) Placement Full risks, complications, and benefits of operative versus non-operative intervention have been thoroughly discussed. Understanding was expressed, informed consent given, and we will proceed with the discussed operative treatment plan. There were no questions for me at the end of the office visit. 2. F/u p/o Not available 11/16/2023 16:22:15 He has severe retraction and serous otitis media of his left ear and he has had multiple left ear surgeries and he has associated hearing loss. He would benefit from left ear tube placement with a long-term T-tube and we discussed surgery in detail today and he wishes to proceed. He wants to hold off on sinus surgery for his chronic sinusitis for now. We will obtain [facility] medical records [facility] including his hearing test Not available 11/16/2023 16:26:29 01/31/2024 [id number] 1. F/u in 6 fernando hs with audio. [email or web address] Not available 01/31/2024 15:07:13 He is doing well after left ear tube placement and left mastoid debridement. His retracted tympanic membrane is now in a better position and his tube is in good position and functioning well. Mastoid cavity is clean. Routine follow-up with hearing testing will be scheduled in 6 months. Not available 01/31/2024 15:10:28 08/01/2024 [id number] 1. Audiogram obtained in office today. Results [...] 4. F/u in 12 months with audio Not available 08/01/2024 16:15:05 Hearing testing shows [...] Abnormal Flag Note LastModifiedBy Organization Detail LastModifiedTime 12/16/19 24 12/16/2023 COMPL ETE BLOOD COUNT white blood cells 8.5 10*3/ uL 3.8-10 .8 normal Not Available [facility] [address] [place] [address], [address], 12/16/2023 18:24:31 12/16/19 24 12/16/2023 COMPL ETE BLOOD COUNT red blood cells 5.10 10*6/ uL 4.20-5 .80 normal Not Available [facility] [address] [place] [address], [address], 12/16/2023 18:24:31 12/16/19 24 12/16/2023 COMPL ETE BLOOD COUNT hemoglobin 14.8 g/dL 14.0-1 8.0 normal Not Available [facility] [address] [place] [address], [address], 12/16/2023 18:24:31 12/16/19 24 12/16/2023 COMPL ETE BLOOD COUNT hematocrit 44.2 % 40.0-5 2.0 normal Not Available [facility] [address] [place] [address], [address], 12/16/2023 18:24:31 12/16/19 24 12/16/2023 COMPL ETE BLOOD COUNT MCV 87 fL 80-100 normal Not Available [facility] [address] [place] [address], [address], 12/16/2023 18:24:31 12/16/19 24 12/16/2023 COMPL ETE BLOOD COUNT MCH 29 pg 26-35 normal Not Available [facility] [address] [place] [address], [address], 12/16/2023 18:24:31 12/16/19 24 12/16/2023 COMPL ETE BLOOD COUNT MCHC 34 g/dL 32-36 normal Not Available [facility] [address] [place] [address], [address], 12/16/2023 18:24:31 12/16/19 24 12/16/2023 COMPL ETE BLOOD COUNT RDW 14.0 % 11.0-1 5.0 normal Not Available [facility] [address] [place] [address], [address], 12/16/2023 18:24:31 12/16/19 24 12/16/2023 COMPL ETE BLOOD COUNT MPV 9.4 fL 6.2-10 .5 normal Not Available [facility] [address] [place] [address], [address], 12/16/2023 18:24:31 12/16/19 24 12/16/2023 COMPL ETE BLOOD COUNT platelet count 202 10*3/ uL 150-40 0 normal Not Available [facility] [address] [place] [address], [address], 12/16/2023 18:24:31 12/16/19 24 12/16/2023 COMPL ETE BLOOD COUNT neutrophil,a bsolute 5.0 10*3/ uL 1.6-8. 4 normal Not Available [facility] [address] [place] [address], [address], 12/16/2023 18:24:31 12/16/19 24 12/16/2023 COMPL ETE BLOOD COUNT lymphocyte,a bsolute 2.6 10*3/ uL 0.4-5. 1 normal Not Available [facility] [address] [place] [address], [address], 12/16/2023 18:24:31 12/16/19 24 12/16/2023 COMPL ETE BLOOD COUNT monocyte,abs olute 0.6 10*3/ uL 0.0-1. 2 normal Not Available [facility] [address] [place] [address], [address], 12/16/2023 18:24:31 12/16/19 24 12/16/2023 COMPL ETE BLOOD COUNT eosinophil,a bsolute 0.2 10*3/ uL 0.0-0. 8 normal Not Available [facility] [address] [place] [address], [address], 12/16/2023 18:24:31 12/16/19 24 12/16/2023 COMPL ETE BLOOD COUNT basophil,abs olute 0.1 10*3/ uL 0.0-0. 3 normal Not Available [facility] [address] [place] [address], [address], 12/16/2023 18:24:31 12/16/19 24 12/16/2023 COMPL ETE BLOOD COUNT % neutrophils 59.0 % 42.0-7 8.0 normal Not Available [facility] [address] [place] [address], [address], 12/16/2023 18:24:31 12/16/19 24 12/16/2023 COMPL ETE BLOOD COUNT % lymphocytes 30.6 % 11.0-4 7.0 normal Not Available [facility] [address] [place] [address], [address], 12/16/2023 18:24:31 12/16/19 24 12/16/2023 COMPL ETE BLOOD COUNT % monocytes 6.9 % 0.0-11 .0 normal Not Available [facility] [address] [place] [address], [address], 12/16/2023 18:24:31 12/16/19 24 12/16/2023 COMPL ETE BLOOD COUNT % eosinophils 2.8 % 0.0-7. 0 normal Not Available [facility] [address] [place] [address], [address], 12/16/2023 18:24:31 12/16/19 24 12/16/2023 COMPL ETE BLOOD COUNT % basophils 0.7 % 0.0-3. 0 normal Not Available [facility] [address] [place] [address], [address], 12/16/2023 18:24:31 12/16/19 24 12/16/2023 COMPL ETE BLOOD COUNT nucleated red cells 0.1 % 0.0-0. 9 normal Not Available [facility] [address] [place] [address], [address], 12/16/2023 18:24:31 12/16/19 24 12/16/2023 COMPL ETE BLOOD COUNT nucleated RBCs, absolute 0.01 10*3/ uL not estab. normal Not Available [facility] [address] [place] [address], [address], 12/16/2023 18:24:31 12/16/19 24 12/16/2023 COMP. METAB OLIC PANEL glucose 94 mg/dL 74-100 normal Not Available [facility] [address] [place] [address], [address], 12/16/2023 18:32:19 12/16/19 24 12/16/2023 COMP. METAB OLIC PANEL blood urea nitrogen 15 mg/dL 6-20 normal Not Available [facility] [address] [place] [address], [address], 12/16/2023 18:32:19 12/16/19 24 12/16/2023 COMP. METAB OLIC PANEL creatinine 0.96 mg/dL 0.70-1 .28 normal Not Available [facility] [address] [place] [address], [address], 12/16/2023 18:32:19 12/16/19 24 12/16/2023 COMP. METAB OLIC PANEL BUN/creatini ne ratio 16 (calc ) 10-20 normal Not Available [facility] [address] [place] [address], [address], 12/16/2023 18:32:19 12/16/19 24 12/16/2023 COMP. METAB OLIC PANEL sodium 139 mmol/ L 136-14 5 normal Not Available [facility] [address] [place] [address], [address], 12/16/2023 18:32:19 12/16/19 24 12/16/2023 COMP. METAB OLIC PANEL potassium 4.2 mmol/ L 3.4-5. 0 normal Not Available [facility] [address] [place] [address], [address], 12/16/2023 18:32:19 12/16/19 24 12/16/2023 COMP. METAB OLIC PANEL chloride 102 mmol/ L 98-107 normal Not Available [facility] [address] [place] [address], [address], 12/16/2023 18:32:19 12/16/19 24 12/16/2023 COMP. METAB OLIC PANEL carbon dioxide 24 mmol/ L 22-31 normal Not Available [facility] [address] [place] [address], [address], 12/16/2023 18:32:19 12/16/19 24 12/16/2023 COMP. METAB OLIC PANEL anion gap 13 (calc ) 7-25 normal Not Available [facility] [address] [place] [address], [address], 12/16/2023 18:32:19 12/16/19 24 12/16/2023 COMP. METAB OLIC PANEL calcium 9.6 mg/dL 8.6-10 .2 normal Not Available [facility] [address] [place] [address], [address], 12/16/2023 18:32:19 12/16/19 24 12/16/2023 COMP. METAB OLIC PANEL total protein 7.3 g/dL 6.4-8. 3 normal Not Available [facility] [address] [place] [address], [address], 12/16/2023 18:32:19 12/16/19 24 12/16/2023 COMP. METAB OLIC PANEL albumin 4.5 g/dL 3.5-5. 2 normal Not Available [facility] [address] [place] [address], [address], 12/16/2023 18:32:19 12/16/19 24 12/16/2023 COMP. METAB OLIC PANEL globulin 2.8 1.5-4. 5 normal Not Available [facility] [address] [place] [address], [address], 12/16/2023 18:32:19 12/16/19 24 12/16/2023 COMP. METAB OLIC PANEL albumin/glob ulin ratio 1.6 (calc ) 1.1-2. 5 normal Not Available [facility] [address] [place] [address], [address], 12/16/2023 18:32:19 12/16/19 24 12/16/2023 COMP. METAB OLIC PANEL bilirubin, total 0.4 mg/dL 0.1-1. 2 normal Not Available [facility] [address] [place] [address], [address], 12/16/2023 18:32:19 12/16/19 24 12/16/2023 COMP. METAB OLIC PANEL alkaline phosphatase 52 U/L 40-129 normal Not Available [facility] [address] [place] [address], [address], 12/16/2023 18:32:19 12/16/19 24 12/16/2023 COMP. METAB OLIC PANEL AST 18 U/L 0-40 normal Not Available [facility] [address] [place] [address], [address], 12/16/2023 18:32:19 12/16/19 24 12/16/2023 COMP. METAB OLIC PANEL ALT 21 U/L 0-41 normal Not Available [facility] [address] [place] [address], [address], 12/16/2023 18:32:19 12/16/19 24 12/16/2023 COMP. METAB OLIC PANEL GFR 92 >= 60 normal NOT E New calcu latio n for GFR (CKD- EPI 2020) is formu lated witho ut race adjus tment facto rs at the recom menda tion of the Natio nal Kidne y Found ation and Ameri can Socie ty of Nephr ology . This calcu latio n has not been valid ated in pregn ant women . For pedia portia patie nts refer to https ://orly w.corina chaudhryy.o rg/pr ofess ional s/KDO QI/gf r_cal culat orPed Not Available [facility] [address] [place], [address], 12/16/2023 18:32:19 12/16/19 24 12/16/2023 elect rocar diogr am No observ ation record ed. [email or web address] [facility] [address] [facility], [place], [address], 12/16/2023 15:43:34 12/16/19 24 12/16/2023 elect rocar diogr am No observ ation record ed. Not Available 01/01 12:49:15 08/04/19 25 08/01/2024 audio gram No observ ation record ed. BARCODE Not Available 2024 12:49:18 Result Notes None recorded. Problems No Known Problems Procedures Surgical History Date Name Laterality Status Provider Name and Address Organization Details Recorded Time 5 Tympanogram completed KATIANA THRASHER , AUD [address] [place], [address], [facility] 08/01/2024 15:45:30 5 Audiogram completed KATIANA THRASHER , AUD [address] [place], [address], [facility] 08/01/2024 15:45:28 5 Debridement Mastoid Cavity completed Allan Horton [facility] 08/01/2024 16:12:54 0 OT Manual Therapy cancelled CACHORRO HARTMAN, OTR/L, CHT [address] [place], [address], [facility] 02/18/2020 10:01:42 0 Orthotic, HFO, Static Custom completed CACHORRO HARTMAN, OTR/L, CHT [address] [place], [address], [facility] 02/08/2020 11:04:03 0 OT Evaluation - Moderate complexity completed CACHORRO HARTMAN OTR/L, CHT [address] [place], [address], [facility] 02/08/2020 11:03:58 9 Injection Joint/Bursa, Small completed CHARU KRAMER MD [address] [place], [address], [facility] 05/22/2018 13:46:40 Imaging Results Imaging Date Name Status LastModified by Organization Details LastModified Time 12/16/2023 electrocardiogram completed [facility] [address], [place], [address], 12/16/2023 15:43:34 12/16/2023 electrocardiogram completed Informa tion not available 01/02/2024 12:49:15 08/01/2024 audiogram completed BAR[facility] Information no t available 08/03/2024 12:49:18 Procedure Notes None recorded. Medical Equipment None [...] and Address Organization Details Last Updated DateTime 4 177.8 cm 29.9 kg/m2 36397.9 1 g 98.1 [degF] 94 /min 127 mm[Hg] 89 mm[Hg] Cayla Medina [facility] 4 15:03:47 Date Recorded Body height Body mass index (BMI) Body weight Body temperature Heart rate Systolic blood pressure Diastolic blood pressure Provider Name and Address Organization Details Last Updated DateTime 4 177.8 cm 31.3 kg/m2 67156.4 2 g 97.8 [degF] 67 /min 151 mm[Hg] 100 mm[Hg] Jeanne Shad [facility] 4 14:55:56 Date Recorded Body height Body mass index (BMI) Body weight Body temperature Heart rate Systolic blood pressure Diastolic blood pressure Provider Name and Address Organization Details Last Updated DateTime 5 177.8 cm 32.9 kg/m2 486063. 65 g 98.1 [degF] 71 /min 131 mm[Hg] 94 mm[Hg] Denisa Johnson [facility] 5 15:14:14 Social History Question Answer Notes LastModified by Organizat ion Details LastModified Time Tobacco Smoking Status Never Smoker Elaine leahy, [facility] 05/22/2018 13:48:27 What Is Your Level Of Alcohol Consumption? 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 Information not available 05/22/2018 Which Of Your [...] Arrhythmia N Emphysema N Esophagus/swallowing troubles N Depression N Anxiety Disorder N Arthritis Y Acid Reflux (GERD) Y Cancer N Stroke N Hoarseness N Snoring problems Y Headaches N Kidney Disease N Heart Problems N Mental handicap N Ear or Hearing Problems Y Gallbladder Disease N Migraines N Goiter N Ulcers N Rheumatic Fever N Bleeding Disorder N Tuberculosis N AIDS/HIV N Asthma N Sleep Disorder N Hepatitis N Glaucoma N Hypothyroidism N Lung Disease N Anesthesia Complications N Hearing Loss Y Alcohol Overuse/Alcohol Abuse N High Cholesterol N Liver Disease N Allergies/Hayfever N Thyroid Problems N Anemia N Immune System Disorder N Chest Pain N Stomach trouble N Heart Attack ([place]) N Diabetes N Hyperlipidemia N Epilepsy/Seizures N Heart Disease N Hypertension Y Immunizations Vaccine Type Date Status Note Provider Nam e and Address Organization Details Recorded Time Influenza, MDCK, quadrivalent, PF 04/02/2020 completed Jeanne [facility] 01/31/2024 14:56:03 COVID-19 vaccine, vector-nr, rS-Ad26, PF, 0.5 mL 12/10/2020 completed Jeannejamir Kulkarn[facility] 01/31/2024 14:56:03 Tdap 02/07/2020 completed [facility] 01/31/2024 14:56:03 Influenza, split virus, quadrivalent, PF 01/19/2016 completed Jeanne Sh[facility] 01/31/2024 14:56:03 Influenza, split virus, quadrivalent, PF 01/20/2017 completed Jeanne Kulkarn[facility] 01/31/2024 14:56:03 Past Encounters Encounter ID Performer Location Encounter Start Date Encounter Closed Date Diagnosis/Indication Diagnosis SNOMED-CT Code Diagnosis ICD10 Code Diagnosis Note [id number] CHARU KRAMER MD [facility] [address] [place] [address] 05/22/2018 12:33:17 05/23/2018 09:19:15 Idiopathic osteoarthritis 090209211 M19.91 Right long finger, Pain may have been initially triggered by a fall although he has idiopathic arthritis. Injection, Follow-up 6 weeks to consider further management .? Arthroscop y MP joint with debridemen t [id number] TANNER SIMPSON MD [facility] [address] [place] [address] 08/08/2018 15:08:22 08/08/2018 16:39:22 Arthritis of hand 307417612 M13.841 M13.842 X-rays of bilateral hands reveal moderate to severe arthritic changes involving bilateral long finger MCP joints. There are also mild arthritic changes involving the ring finger MCP joints as well as IP joints the hand. Mild to moderate arthritic changes within bilateral wrist as well. [id number] CHARU KRAMER MD [facility] [address] [place] [address] 02/08/2020 09:03:17 02/08/2020 09:45:19 Laceration of finger of left hand 8184955036 0282659 S61.211A Thumb and index finger from a grinder outside diameter [id number] CACHORRO HARTMAN, NICHOLER/L, CHT PHYSICAL THERAP[facility] [address] [place] [address] 02/08/2020 10:11:40 02/08/2020 11:15:01 Laceration of finger of left hand 1507510892 2158127 S61.211A [id number] CHARU KRAMER MD [facility] [address] [place] [address] 02/18/2020 13:54:31 02/18/2020 14:14:41 Laceration of finger of left hand 9508561217 6319707 S61.211A Thumb and index finger from a grinder outside diameter [id number] WILLA BROWN MD [facility] [address] [place] [address] 10/05/2022 14:31:41 10/05/2022 16:36:20 Pain of left shoulder joint 6120934887 8521063 M25.512 [id number] WILLA BROWN MD [facility] [address] [address] 10/07/2022 07:56:14 10/07/2022 08:53:46 Rupture of rotator cuff of left shoulder 2530811480 1707930 M75.102 supraspina tus and subscapula ris [id number] WILLA BROWN MD [facility] [address] [place] [address] 11/22/2022 15:49:29 11/22/2022 17:15:20 Rupture of rotator cuff of left shoulder 9023576175 3905106 M75.102 supraspina tus and infraspina tus Traumatic rupture of biceps tendon 063515202 S46.212A [id number] WILLA BROWN MD SURGERY SCHEDULE [address] [place] [address] 12/22/2022 08:18:29 12/22/2022 08:19:08 [id number] [facility]INA [facility] [address] [place] [address] 01/04/2023 09:17:42 01/04/2023 09:58:53 Postoperative care [id number] Z48.89 [id number] [facility] [address] [address] 01/25/2023 08:49:55 01/25/2023 09:24:07 Postoperative care 016076956 Z48.89 5 weeks s/p left shoulder arthroscop y with rotator cuff repair, biceps tenotomy of fragment, and debridemen t labrum (DOS: 12/22/2022) [id number] WILLA BROWN MD [facility] [address] [address] 03/01/2023 08:25:09 03/01/2023 09:29:05 Postoperative care 208937320 Z48.89 10 weeks s/p left shoulder arthroscop y with rotator cuff repair, biceps tenotomy of fragment, and debridemen t labrum (DOS: 12/22/2022) [id number] WILLA BROWN MD [facility] [address] [place] [address] 03/15/2023 16:05:25 03/15/2023 17:43:20 Postoperative care 993591108 Z48.89 12 weeks s/p left shoulder arthroscop y with rotator cuff repair, biceps tenotomy of fragment, and debridemen t labrum (DOS: 12/22/2022) [id number] WILLA BROWN MD [facility] [address] [place] [address] 04/26/2023 15:54:43 04/26/2023 18:16:38 History of repair of musculotendinous cuff of shoulder 817082763 Z98.890 4 months s/p left shoulder RC repair [id number] MD CELIO SILVA [facility] [address] [facility] [address] [place] [address] 11/16/2023 14:32:29 11/17/2023 04:22:40 Dysfunction of left eustachian tube 3464828470 693733 H69.92 Serous rocco tis media of left ear 6795942867 446774 H65.92 Retraction of tympanic membrane 96613345 H73.899 severe [id number] NAYELI LOPES MD HEART [address] [place] [address] 12/16/2023 14:29:16 12/16/2023 14:42:30 Pre-surgery testing 075804606 Z01.89 [id number] MD CELIO SILVA [facility] [address] [facility] [place] [address] 01/31/2024 14:25:36 01/31/2024 16:11:30 Dysfunction of left eustachian tube 5759388667 476188 H69.92 *01/06/24 S/p LMT Tube (T-tube) Placement with mastoid debridemen t- 01/31/[address] and patent, left TM is less retracted than it was before surgery; cavity is nice and clear today Serous rocco tis media of left ear 7675730631 231018 H65.92 *01/06/24 S/p LMT Tube (T-tube) Placement Retraction of tympanic membrane 81529237 H73.899 severe- 01/31/24 retraction looks much better s/p LMT placement [id number] PACO BYRNES MD MD ENT [facility] [place] [address] 08/01/2024 14:56:13 08/07/2024 12:58:40 Dysfunction of left eustachian tube 2485132489 016982 H69.92 *01/06/24 S/p LMT Tube (T-tube) Placement with mastoid debridemen t- 01/31/[address] and patent, left TM is less retracted than it was before surgery; cavity is nice and clear today08/01- tube is present and patent Serous rocco tis media of left ear 5430556422 114084 H65.92 *01/06/24 S/p LMT Tube (T-tube) Placement Retraction of tympanic membrane 56682691 H73.899 severe- 01/31/24 retraction looks much better s/p LMT placement Eczema of external auditory canal 52062685 H60.549 Chronic le ft mastoiditis 5918302423 655302 H70.12 Asymmetric al sensorineural hearing loss 449331278 H90.5 08/01/24-a udiogram [id number] LIZA COX MD ENT [address] [facility] [place] [address] 08/01/2024 15:26:08 08/01/2024 16:06:09 Dysfunction of bilateral eustachian tubes 3241520766 658756 H69.93 Conductive hearing loss, bilateral 624782217 H90.0 Health Concerns Section Related Observation LastModified by Organization Detai ls LastModified Time None Recorded Concern Status LastModified by Organization Details LastModified Time None Recorded Advance Directives Directive None Recorded Payers Encounter Date Sequence Insurance Name Policy Number Policy Irene Covered Member ID Irene Member ID Guarantor Name 11/16/2023 1 [place] [id number] Marek Brown Jr [id number] Marek Zamora Kevin 12/16/2023 1 [place] [id number] Marek Brown Jr [id number] Marek Zamora Kevin 01/31/2024 1 [place] [id number] Marek Brown Jr [id number] Marek Zamora Kevin 08/01/2024 1 [place]) [id number] Marek Brown Jr [id number] Marek Zamora Kevin 08/01/2024 1 [place] [id number] Marek Brown Jr [id number] Marek Zamora Kevin Notes Date Note Type Note Provider Name and Address Organization Details Recorded Time 11/16/2023 text/html Rodrigo visits us in office today to follow up on his left ETD. Pt has muffled hearing in the left ear. The left ear has underwent multiple surgeries. Pressure is felt in the left ear today. PACO BYRNES MD [address] [place] [address], [address], [facility] 11/16/2023 16:26:41 01/31/2024 text/html Rodrigo visits us in office today S/p LMT Tube (T-tube) Placement performed on 01/06/24. Rodrigo feels that the tube has helped some, but his left ear still feels slightly muffled with the tube and he gets an occasional earache. He has noticed his hearing is better in his left ear. PACO BYRNES MD [address] [place] [address], [address], [facility] 01/31/2024 15:10:44 08/01/2024 text/html Rodrigo visits us in office today to follow up on ETD and hearing loss. Pt has not presented with infection in either ear. He notes experiencing itching in the right ear recently. Pt does use Q-tips regularly to clean the ears. PACO BYRNES MD [address] [place], [address], [facility] 08/01/2024 16:18:52
--- NOTE | 2024-08-21 06:30 | NM_ITS ---
APPROVED REPORT Exam: Nuclear Stress Test Indication: cp..soa Patient Location: Outpatient Stress Tech: Tonya Brandon [place] Tech:Isa Delgado, CURTIST, RT (R)(N) Ht: 5 ft 9 in Wt: 230 lbs HR: 63 bpm BP: 139/96 mmHg BSA: 2.19 m2 TID: 1.23 BMI: 33.9 History: cp//soa Procedure: Patient received 0.4 mg of intravenous Lexiscan, resting heart rate 63 bpm, resting blood pressure 139/96 mmHg, with Lexiscan maximum heart rate achieved was 84 bpm which is 85 % of the maximum predicted heart rate and blood pressure was 140/95 mmHg. With Lexiscan, patient denied any complaint of chest pain. Cardiac Stress and Resting SPECT Images: Cardiac Stress and Resting SPECT images were obtained using technetium 99m Myoview 29.9 mCi stress and 10.16 mCi at rest. Resting and stress imaging in supine and prone positions demonstrate no evidence of fixed or reversible perfusion defects. There is increase in transient ischemic dilatation ratio (TID 1.23), suggestive of possible multivessel disease or balanced ischemia. Gated imaging demonstrates normal global and regional LV systolic function. LVEF is calculated at 59%. Conclusion: No evidence of fixed or reversible perfusion defects. There is increase in transient ischemic dilatation ratio (TID 1.23), suggestive of possible multivessel disease or balanced ischemia. Gated imaging demonstrates normal global and regional LV systolic function. LVEF is calculated at 59%. Electronically signed by : Naomy Renee MD 08/21/2024 12:11:20
[2024-08-21] MEDS: SODIUM CHLORIDE 0.9% 10ML SYR (RAD ONLY) 10 ML IV ×2 (08:19→08:20)
[2024-08-21] MEDS: ISOTOPE MYOVIEW (PER STUDY) 1 DOSE IV (08:20)
[2024-08-21] MEDS: REGADENOSON 0.4MG/5ML SYRINGE 0.4 MG IV (08:27)
== END 2024-08-21 23:59 | disposition home or self-care (01) ==
LOC: RAD 06:19
PROVIDERS: PCP Internal Medicine; Visit Provider Physician Assistant
DX: R94.31 Abnormal electrocardiogram [ECG] [EKG] (principal); R42 Dizziness and giddiness; R07.9 Chest pain, unspecified
CPT/HCPCS: 78452; 93017; 93018; A9502; J2785

== ENCOUNTER 2024-08-29 07:34 | Outpatient (CLI) | payer BC, SELFPAY ==
--- OUTSIDE RECORDS SUMMARY | 2024-08-29 07:36 | XMS_ITS | Continuity of Care Document ---
Author Organization [facility] [address] Address [address] [place] [address] Care Team Providers Care Engine Service Repairer Name Role Phone RADHA CLAIRE Primary Care [...] completed KATIANA THRASHER , AUD [address] [place], [address], [facility] 08/01/2024 15:45:30 5 Audiogram completed KATIANA THRASHER , AUD [address] [place], [address], [facility] 08/01/2024 15:45:28 5 Debridement Mastoid Cavity completed Allan Horton [facility] 08/01/2024 16:12:54 0 OT Manual Therapy cancelled CACHORRO HARTMAN, OTR/L, CHT [address] [place], [address], [facility] 02/18/2020 10:01:42 0 Orthotic, HFO, Static Custom completed CACHORRO HARTMAN OTR/L, CHT [address] [place], [address], [facility] 02/08/2020 11:04:03 0 OT Evaluation - Moderate complexity completed CACHORRO HARTMAN OTR/L, CHT [address] [place], [address], [facility] 02/08/2020 11:03:58 9 Injection Joint/Bursa, Small completed CHARU KRAMER MD [address] [place], [address], [facility] 05/22/2018 13:46:40 Imaging Results None recorded. Procedure [...] Updated DateTime 5 177.8 cm 32.9 kg/m2 649681. 65 g 98.1 [degF] 71 /min 131 mm[Hg] 94 mm[Hg] Denisa Johnson [facility] 5 15:14:14 Social History Question Answer Notes LastModified by [employer] Details LastModified Time Tobacco Smoking Status Never Smoker Elaine Singer tosin, [facility] 05/22/2018 13:48:27 Which Of Your Hands Is Dominant? Right Information not available 05/22/2018 Which Hand Is Involved? Right Information not available 05/22/2018 Marital Status Informatio n not available 05/22/2018 What Was The Date Of Your Most Recent Tobacco Screening? 08/08/2018 Information n ot available 06/05/2019 Sex: Male Functional Status Question Answer Note LastModified by [employer] Details LastModified Time Do you use any illicit or recreational drugs? No Information not available 05/22/2018 What is your level of alcohol consumption? 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 Family History Relationship [...] Pain N Stomach trouble N Heart Attack ([place]) N Ulcers N Diabetes N Rheumatic Fever N Bleeding Disorder N Tuberculosis N AIDS/HIV N Hyperlipidemia N Asthma N Epilepsy/Seizures N Sleep Disorder N Hepatitis N Heart Disease N Hypertension Y Immunizations Vaccine Type Date Status Note Provider Nam e and Address Organization Details Recorded Time Influenza, MDCK, quadrivalent, PF 04/02/2020 completed Jeanne Shad null, [facility] 01/31/2024 14:56:03 COVID-19 vaccine, vector-nr, rS-Ad26, PF, 0.5 mL 12/10/2020 completed Jeanne Shad null, [facility] 01/31/2024 14:56:03 Tdap 02/07/2020 completed Jeanne Shad null, [facility] 01/31/2024 14:56:03 Influenza, split virus, quadrivalent, PF 01/19/2016 completed Jeanne Shad null, [facility] 01/31/2024 14:56:03 Influenza, split virus, quadrivalent, PF 01/20/2017 completed Jeanne Shad null, [facility] 01/31/2024 14:56:03 Past Encounters Encounter ID Performer Location Encounter Start Date Encounter Closed Date Diagnosis/Indication Diagnosis SNOMED-CT Code Diagnosis ICD10 Code Diagnosis Note [id number] PACO BYRNES MD [place] [facility] [address] [place] [address] 08/01/2024 14:56:13 08/07/2024 12:58:40 Dysfunction of left eustachian tube 1655345791 265978 H69.92 *01/06/24 S/p LMT Tube (T-tube) Placement with mastoid debridemen t- 01/31/[address] and patent, left TM is less retracted than it was before surgery; cavity is nice and clear today08/01- tube is present and patent Serous rocco tis media of left ear 1905925024 878464 H65.92 *01/06/24 S/p LMT Tube (T-tube) Placement Retraction of tympanic membrane 35616021 H73.899 severe- 01/31/24 retraction looks much better s/p LMT placement Eczema of external auditory canal 09764091 H60.549 Chronic le ft mastoiditis 7700656789 421768 H70.12 Asymmetric al sensorineural hearing loss 507950667 H90.5 08/01/24-a udiogram [id number] KATIANA HOLLISI NG, AUD [place] [facility] [address] [place] [address] 08/01/2024 15:26:08 08/01/2024 16:06:09 Dysfunction of bilateral eustachian tubes 7715976948 043826 H69.93 Conductive hearing loss, bilateral 386034170 H90.0 Health Concerns Section Related Observation LastModified by Organization Detai ls LastModified Time None Recorded Concern Status LastModified by Organization Details LastModified Time None Recorded Payers Encounter Date Sequence Insurance Name Policy Number Policy Irene Covered Member ID Irene Member ID Guarantor Name 08/01/2024 1 [place] [id number] Marek Brown [id number] Marek Brown Notes Date Note Type Note Provider Name and Address Organization Details Recorded Time 08/01/2024 text/html Rodrigo visits us in office today to follow up on ETD and hearing loss. Pt has not presented with infection in either ear. He notes experiencing itching in the right ear recently. Pt does use Q-tips regularly to clean the ears. PACO BYRNES MD [address] [place], [address], [facility] 08/01/2024 16:18:52
--- OUTSIDE RECORDS SUMMARY | 2024-08-29 07:36 | XMS_ITS | Continuity of Care Document ---
Author Organization [facility] Address [address] [place] [address] Care Team Providers Care Associate Embalmer/Funeral Director Name Role Phone RADHA CLAIRE Primary Care [...] 0.01 % ear drops [address] [facility], [address], [address], 08/02/2024 11:06:32 Patient TargetsNo targets recorded. Patient Instructions Encounter Date Encounter Id Patient Instructions Last Modified By Organization Details Last Modified Time 08/01/2024 [id number] 1. Audiogram obtained in office today. Results [...] completed KATIANA THRASHER , AUD [address] [place], [address], [facility] 08/01/2024 15:45:30 5 Audiogram completed KATIANA THRASHER , AUD [address] [place], [address], [facility] 08/01/2024 15:45:28 5 Debridement Mastoid Cavity completed Allan Horton [facility] 08/01/2024 16:12:54 0 OT Manual Therapy cancelled CACHORRO HARTMAN OTR/L, CHT [address] [place], [address], [facility] 02/18/2020 10:01:42 0 Orthotic, HFO, Static Custom completed CACHORRO HARTMAN OTR/L, CHT [address] [place], [address], [facility] 02/08/2020 11:04:03 0 OT Evaluation - Moderate complexity completed CACHORRO HARTMAN OTR/L, CHT [address] [place], [address], [facility] 02/08/2020 11:03:58 9 Injection Joint/Bursa, Small completed CHARU KRAMER MD [address] [place], [address], [facility] 05/22/2018 13:46:40 Imaging Results None recorded. Procedure [...] Updated DateTime 5 177.8 cm 32.9 kg/m2 543351. 65 g 98.1 [degF] 71 /min 131 mm[Hg] 94 mm[Hg] Denisa Johnson [facility] 5 15:14:14 Social History Question Answer Notes LastModified by Organizat ion Details LastModified Time Tobacco Smoking Status Never Smoker Elaine leahy [facility] 05/22/2018 13:48:27 Which Of Your Hands Is Dominant? Right Information not available 05/22/2018 Which Hand Is Involved? Right Information not available 05/22/2018 Marital Status Informatio n not available 05/22/2018 What Was The Date Of Your Most Recent Tobacco Screening? 08/08/2018 Information n ot available 06/05/2019 Sex: Male Functional Status Question Answer Note LastModified by Organizat ion Details LastModified Time Do you use any illicit or recreational drugs? No Information not available 05/22/2018 What is your level of alcohol consumption? 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 Information not available 05/22/2018 Mental Status [...] Pain N Stomach trouble N Heart Attack ([place]) N Ulcers N Diabetes N Rheumatic Fever N Bleeding Disorder N Tuberculosis N AIDS/HIV N Hyperlipidemia N Asthma N Epilepsy/Seizures N Sleep Disorder N Hepatitis N Heart Disease N Hypertension Y Immunizations Vaccine Type Date Status Note Provider Nam e and Address Organization Details Recorded Time Influenza, MDCK, quadrivalent, PF 04/02/2020 completed Jeanne leahy, [facility] 01/31/2024 14:56:03 COVID-19 vaccine, vector-nr, rS-Ad26, PF, 0.5 mL 12/10/2020 completed Jeanne Kulkarni null, [facility] 01/31/2024 14:56:03 Tdap 02/07/2020 completed Jeanne leahy, [facility] 01/31/2024 14:56:03 Influenza, split virus, quadrivalent, PF 01/19/2016 completed Jeanne Kulkarni null, [facility] 01/31/2024 14:56:03 Influenza, split virus, quadrivalent, PF 01/20/2017 completed Jeanne leahy [facility] 01/31/2024 14:56:03 Past Encounters Encounter ID Performer Location Encounter Start Date Encounter Closed Date Diagnosis/Indication Diagnosis SNOMED-CT Code Diagnosis ICD10 Code Diagnosis Note [id number] PACO BYRNES MD [place] [facility] [address] [place] [address] 08/01/2024 14:56:13 08/07/2024 12:58:40 Dysfunction of left eustachian tube [id number] 823403 H69.92 *01/06/24 S/p LMT Tube (T-tube) Placement with mastoid debridemen t- 01/31/[address] and patent, left TM is less retracted than it was before surgery; cavity is nice and clear today08/01- tube is present and patent Serous rocco tis media of left ear 4005246113 428291 H65.92 *01/06/24 S/p LMT Tube (T-tube) Placement Retraction of tympanic membrane 60362331 H73.899 severe- 01/31/24 retraction looks much better s/p LMT placement Eczema of external auditory canal 95902661 H60.549 Chronic le ft mastoiditis 9052070641 968291 H70.12 Asymmetric al sensorineural hearing loss 479801042 H90.5 08/01/24-a udiogram [id number] LIZA COX [place] [facility] [address] [place] [address] 08/01/2024 15:26:08 08/01/2024 16:06:09 Dysfunction of bilateral eustachian tubes 1732881442 890907 H69.93 Conductive hearing loss, bilateral 913422305 H90.0 Health Concerns Section Related Observation LastModified by Organization Detai ls LastModified Time None Recorded Concern Status LastModified by Organization Details LastModified Time None Recorded Payers Encounter Date Sequence Insurance Name Policy Number Policy Irene Covered Member ID Irene Member ID Guarantor Name 08/01/2024 1 [place] [employer] [place] [id number] Marek Brown Jr [id number] Marek Brown Notes Date Note Type Note Provider Name and Address Organization Details Recorded Time 08/01/2024 text/html Rodrigo visits us in office today to follow up on ETD and hearing loss. Pt has not presented with infection in either ear. He notes experiencing itching in the right ear recently. Pt does use Q-tips regularly to clean the ears. PACO BYRNES MD [address] [place] [address], [address], [facility] 08/01/2024 16:18:52
--- OUTSIDE RECORDS SUMMARY | 2024-08-29 07:36 | XMS_ITS ---
Author Organization Unknown Medications Medication Instructions Effective Dates (start - stop) Status lisinopril 10 MG Oral Tablet 202 06-19-16:00:00.000+00 :00 - Completed allopurinol 300 MG Oral Tablet 2 661-18-11I86:00:00.000+00 :00 - Completed metformin hydrochloride 500 MG Oral Tablet 7449-98-14V77:00:00.000+00 :00 - Completed lisinopril 10 MG Oral Tablet 202 06-18-03:00:00.000+00 :00 - Completed amlodipine 5 MG Oral Tablet 2021:00:00.000+00 :00 - Completed naltrexone 380 MG Injection [Vivitrol] 0053-69-25E84:00:00.000+00 :00 - Completed meloxicam 7.5 MG Oral Tablet 06-22-16:00:00.000+00 :00 - Completed lisinopril 10 MG Oral Tablet 05-29-10:00:00.000+00 :00 - Completed meloxicam 7.5 MG Oral Tablet 06-19-24:00:00.000+00 :00 - Completed allopurinol 300 MG Oral Tablet 2 010-62-46U02:00:00.000+00 :00 - Completed naltrexone hydrochloride 50 MG Oral Tablet 6911-23-32C52:00:00.000+00 :00 - Completed allopurinol 300 MG Oral Tablet 2 935-36-89X00:00:00.000+00 :00 - Completed lisinopril 10 MG Oral Tablet 05-26-07:00:00.000+00 :00 - Completed {21 (methylprednisolone 4 MG Oral Tablet) } Pack 3435-43-97H77:00:00.000+00 :00 - Completed allopurinol 300 MG Oral Tablet 2 381-82-89W14:00:00.000+00 :00 - Completed - 5461-68-32I21:00 :00.000+00 :00 - Completed {21 (methylprednisolone 4 MG Oral Tablet) } Pack 1053-47-48Y98:00:00.000+00 :00 - Completed hydroxychloroquine sulfate 2 00 MG Oral Tablet 9995-33-72S31:00:00.000+00 :00 - Completed phentermine hydrochloride 37 .5 MG Oral Tablet 1988-15-77F36:00:00.000+00 :00 - Completed hydroxychloroquine sulfate 2 00 MG Oral Tablet 1199-00-64P08:00:00.000+00 :00 - Completed phentermine hydrochloride 37 .5 MG Oral Tablet 7532-52-51F17:00:00.000+00 :00 - Completed hydroxychloroquine sulfate 2 00 MG Oral Tablet 4823-73-66Q70:00:00.000+00 :00 - Completed hydroxychloroquine sulfate 2 00 MG Oral Tablet 4438-52-59R82:00:00.000+00 :00 - Completed hydroxychloroquine sulfate 2 00 MG Oral Tablet 4110-52-40P62:00:00.000+00 :00 - Completed phentermine hydrochloride 37 .5 MG Oral Tablet 1694-01-78U89:00:00.000+00 :00 - Completed hydroxychloroquine sulfate 2 00 MG Oral Tablet 4692-11-22F10:00:00.000+00 :00 - Completed hydroxychloroquine sulfate 2 00 MG Oral Tablet 9917-33-18Y03:00:00.000+00 :00 - Completed hydroxychloroquine sulfate 2 00 MG Oral Tablet 9418-17-32I53:00:00.000+00 :00 - Completed hydroxychloroquine sulfate 2 00 MG Oral Tablet 5649-71-47X65:00:00.000+00 :00 - Completed allopurinol 300 MG Oral Tablet 401-26-58W91:00:00.000+00 :00 - Completed allopurinol 300 MG Oral Tablet 2 786-88-80P10:00:00.000+00 :00 - Completed Patient Care team information Name Category Status Period Participants - - Proposed period not known -
--- OUTSIDE RECORDS SUMMARY | 2024-08-29 07:36 | XMS_ITS | Data Portability ---
Author Organization [facility] HARMAN HustonS STREETER CLOSED Address [address] [facility] [address] [place] [address] Care Team Providers Care Security Systems Administrator Name Role Phone RADHA CLAIRE Primary Care Provider Assessment No assessment recorded. Plan of Treatment Reminders Order Date Submit Date Provider Last Modified By Organization Details Last Modified Time Details Appointments RECHECK 2025 03:40P M PACO BYRNES MD Not available Not available Not available Lab None recorded. Referral None recorded. Procedures None recorded. Surgeries None recorded. Imaging electroca rdiogram 2023 024 [email or web address] [facility], [address] [facility] , [address], [place], [address], 12/16/2023 15:43:01 Medication Orders DermOtic Oil 0.01 % ear drops [address] [facility] 591, [address], [place], [address], 08/02/2024 11:06:32 Patient TargetsNo targets recorded. Patient Instructions Encounter Date Encounter Id Patient Instructions Last Modified By Organization Details Last Modified Time 11/16/2023 [id number] 1. Recommended L MT Tube (T-Tube) Placement [...] We will obtain his medical records from [facility] including his hearing test Not available 11/16/2023 16:26:29 01/31/2024 [id number] 1. F/u in 6 fernando hs with [...] 6 months. Not available 01/31/2024 15:10:28 08/01/2024 [id number] 1. Audiogram obtained in office today. Results [...] 10*3/ uL 3.8-10 .8 normal Not Available [facility] [address] [place] [address], [address], 12/16/2023 18:24:31 12/16/19 24 12/16/2023 COMPL ETE BLOOD COUNT red blood cells 5.10 10*6/ uL 4.20-5 .80 normal Not Available [facility] [address] [place] [address], [address], 12/16/2023 18:24:31 12/16/19 24 12/16/2023 COMPL ETE BLOOD COUNT hemoglobin 14.8 g/dL 14.0-1 8.0 normal Not Available [facility] [address] [place] [address], [address], 12/16/2023 18:24:31 12/16/19 24 12/16/2023 COMPL ETE BLOOD COUNT hematocrit 44.2 % 40.0-5 2.0 normal Not Available [facility] [address] [place] [address], [address], 12/16/2023 18:24:31 12/16/19 24 12/16/2023 COMPL ETE BLOOD COUNT MCV 87 fL 80-100 normal Not Available [facility] [address] [place] [address], [address], 12/16/2023 18:24:31 12/16/19 24 12/16/2023 COMPL ETE BLOOD COUNT MCH 29 pg 26-35 normal Not Available [facility] [address] [place] [address], [address], 12/16/2023 18:24:31 12/16/19 24 12/16/2023 COMPL ETE BLOOD COUNT MCHC 34 g/dL 32-36 normal Not Available [facility] [address] [place] [address], [address], 12/16/2023 18:24:31 12/16/19 24 12/16/2023 COMPL ETE BLOOD COUNT RDW 14.0 % 11.0-1 5.0 normal Not Available [facility] [address] [place] [address], [address], 12/16/2023 18:24:31 12/16/19 24 12/16/2023 COMPL ETE BLOOD COUNT MPV 9.4 fL 6.2-10 .5 normal Not Available [facility] [address] [place] [address], [address], 12/16/2023 18:24:31 12/16/19 24 12/16/2023 COMPL ETE BLOOD COUNT platelet count 202 10*3/ uL 150-40 0 normal Not Available [facility] [address] [place] [address], [address], 12/16/2023 18:24:31 12/16/19 24 12/16/2023 COMPL ETE BLOOD COUNT neutrophil,a bsolute 5.0 10*3/ uL 1.6-8. 4 normal Not Available [facility] [address] [place] [address], [address], 12/16/2023 18:24:31 12/16/19 24 12/16/2023 COMPL ETE BLOOD COUNT lymphocyte,a bsolute 2.6 10*3/ uL 0.4-5. 1 normal Not Available [facility] [address] [place] [address], [address], 12/16/2023 18:24:31 12/16/19 24 12/16/2023 COMPL ETE BLOOD COUNT monocyte,abs olute 0.6 10*3/ uL 0.0-1. 2 normal Not Available [facility] [address] [place] [address], [address], 12/16/2023 18:24:31 12/16/19 24 12/16/2023 COMPL ETE BLOOD COUNT eosinophil,a bsolute 0.2 10*3/ uL 0.0-0. 8 normal Not Available [facility] [address] [place] [address], [address], 12/16/2023 18:24:31 12/16/19 24 12/16/2023 COMPL ETE BLOOD COUNT basophil,abs olute 0.1 10*3/ uL 0.0-0. 3 normal Not Available [facility] [address] [place] [address], [address], 12/16/2023 18:24:31 12/16/19 24 12/16/2023 COMPL ETE BLOOD COUNT % neutrophils 59.0 % 42.0-7 8.0 normal Not Available [facility] [address] [place] [address], [address], 12/16/2023 18:24:31 12/16/19 24 12/16/2023 COMPL ETE BLOOD COUNT % lymphocytes 30.6 % 11.0-4 7.0 normal Not Available [facility] [address] [place] [address], [address], 12/16/2023 18:24:31 12/16/19 24 12/16/2023 COMPL ETE BLOOD COUNT % monocytes 6.9 % 0.0-11 .0 normal Not Available [facility] [address] [place] [address], [address], 12/16/2023 18:24:31 12/16/19 24 12/16/2023 COMPL ETE BLOOD COUNT % eosinophils 2.8 % 0.0-7. 0 normal Not Available [facility] [address] [place] [address], [address], 12/16/2023 18:24:31 12/16/19 24 12/16/2023 COMPL ETE BLOOD COUNT % basophils 0.7 % 0.0-3. 0 normal Not Available [facility] [address] [place] [address], [address], 12/16/2023 18:24:31 12/16/19 24 12/16/2023 COMPL ETE BLOOD COUNT nucleated red cells 0.1 % 0.0-0. 9 normal Not Available [facility] [address] [place] [address], [address], 12/16/2023 18:24:31 12/16/19 24 12/16/2023 COMPL ETE BLOOD COUNT nucleated RBCs, absolute 0.01 10*3/ uL not estab. normal Not Available [facility] [address] [place] [address], [address], 12/16/2023 18:24:31 12/16/19 24 12/16/2023 COMP. METAB OLIC PANEL glucose 94 mg/dL 74-100 normal Not Available [facility] [address] [place] [address], [address], 12/16/2023 18:32:19 12/16/19 24 12/16/2023 COMP. METAB OLIC PANEL blood urea nitrogen 15 mg/dL 6-20 normal Not Available [facility] [address] [place] [address], [address], 12/16/2023 18:32:19 12/16/19 24 12/16/2023 COMP. METAB OLIC PANEL creatinine 0.96 mg/dL 0.70-1 .28 normal Not Available [facility] [address] [place] [address], [address], 12/16/2023 18:32:19 12/16/19 24 12/16/2023 COMP. METAB OLIC PANEL BUN/creatini ne ratio 16 (calc ) 10-20 normal Not Available [facility] [address] [place] [address], [address], 12/16/2023 18:32:19 12/16/19 24 12/16/2023 COMP. METAB OLIC PANEL sodium 139 mmol/ L 136-14 5 normal Not Available [facility] [address] [place] [address], [address], 12/16/2023 18:32:19 12/16/19 24 12/16/2023 COMP. METAB OLIC PANEL potassium 4.2 mmol/ L 3.4-5. 0 normal Not Available [facility] [address] [place] [address], [address], 12/16/2023 18:32:19 12/16/19 24 12/16/2023 COMP. METAB OLIC PANEL chloride 102 mmol/ L 98-107 normal Not Available [facility] [address] [place] [address], [address], 12/16/2023 18:32:19 12/16/19 24 12/16/2023 COMP. METAB OLIC PANEL carbon dioxide 24 mmol/ L 22-31 normal Not Available [facility] [address] [place] [address], [address], 12/16/2023 18:32:19 12/16/19 24 12/16/2023 COMP. METAB OLIC PANEL anion gap 13 (calc ) 7-25 normal Not Available [facility] [address] [place] [address], [address], 12/16/2023 18:32:19 12/16/19 24 12/16/2023 COMP. METAB OLIC PANEL calcium 9.6 mg/dL 8.6-10 .2 normal Not Available [facility] [address] [place] [address], [address], 12/16/2023 18:32:19 12/16/19 24 12/16/2023 COMP. METAB OLIC PANEL total protein 7.3 g/dL 6.4-8. 3 normal Not Available [facility] [address] [place] [address], [address], 12/16/2023 18:32:19 12/16/19 24 12/16/2023 COMP. METAB OLIC PANEL albumin 4.5 g/dL 3.5-5. 2 normal Not Available [facility] [address] [place] [address], [address], 12/16/2023 18:32:19 12/16/19 24 12/16/2023 COMP. METAB OLIC PANEL globulin 2.8 1.5-4. 5 normal Not Available [facility] [address] [place] [address], [address], 12/16/2023 18:32:19 12/16/19 24 12/16/2023 COMP. METAB OLIC PANEL albumin/glob ulin ratio 1.6 (calc ) 1.1-2. 5 normal Not Available [facility] [address] [place] [address], [address], 12/16/2023 18:32:19 12/16/19 24 12/16/2023 COMP. METAB OLIC PANEL bilirubin, total 0.4 mg/dL 0.1-1. 2 normal Not Available [facility] [address] [place] [address], [address], 12/16/2023 18:32:19 12/16/19 24 12/16/2023 COMP. METAB OLIC PANEL alkaline phosphatase 52 U/L 40-129 normal Not Available [facility] [address] [place] [address], [address], 12/16/2023 18:32:19 12/16/19 24 12/16/2023 COMP. METAB OLIC PANEL AST 18 U/L 0-40 normal Not Available [facility] [address] [place] [address], [address], 12/16/2023 18:32:19 12/16/19 24 12/16/2023 COMP. METAB OLIC PANEL ALT 21 U/L 0-41 normal Not Available [facility] [address] [place] [address], [address], 12/16/2023 18:32:19 12/16/19 24 12/16/2023 COMP. METAB [...] s/KDO QI/gf r_cal culat orPed Not Available [facility] [address] [place], [address], 12/16/2023 18:32:19 12/16/19 24 12/16/2023 elect rocar diogr am No observ ation record ed. [email or web address] [facility] [address] [facility], [place], [address], 12/16/2023 15:43:34 12/16/19 24 12/16/2023 elect rocar [...] Tympanogram completed KATIANA THRASHER , AUD [address] [place], [address], [facility] 08/01/2024 15:45:30 5 Audiogram completed KATIANA THRASHER , AUD [address] [place], [address], [facility] 08/01/2024 15:45:28 5 Debridement Mastoid Cavity completed Allan Horton [facility] 08/01/2024 16:12:54 0 OT Manual Therapy cancelled CACHORRO HARTMAN, OTR/L, CHT [address] [place], [address], [facility] 02/18/2020 10:01:42 0 Orthotic, HFO, Static Custom completed CACHORRO HARTMAN, OTR/L, CHT [address] [place], [address], [facility] 02/08/2020 11:04:03 0 OT Evaluation - Moderate complexity completed CACHORRO HARTMAN OTR/L, CHT [address] [place], [address], [facility] 02/08/2020 11:03:58 9 Injection Joint/Bursa, Small completed CHARU KRAMER MD [address] [place], [address], [facility] 05/22/2018 13:46:40 Imaging Results Imaging Date Name Status LastModified by Organization Details LastModified Time 12/16/2023 electrocardiogram completed [facility] [address], [place], [address], 12/16/2023 15:43:34 12/16/2023 electrocardiogram completed Informa tion [...] Updated DateTime 4 177.8 cm 29.9 kg/m2 00142.9 1 g 98.1 [degF] 94 /min 127 mm[Hg] 89 mm[Hg] Cayla Medina [facility] 4 15:03:47 Date Recorded Body height Body mass index (BMI) Body weight Body temperature Heart rate Systolic blood pressure Diastolic blood pressure Provider Name and Address Organization Details Last Updated DateTime 4 177.8 cm 31.3 kg/m2 73420.4 2 g 97.8 [degF] 67 /min 151 mm[Hg] 100 mm[Hg] Jeanne Shad [facility] 4 14:55:56 Date Recorded Body height Body mass index (BMI) Body weight Body temperature Heart rate Systolic blood pressure Diastolic blood pressure Provider Name and Address Organization Details Last Updated DateTime 5 177.8 cm 32.9 kg/m2 324186. 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 Information not available 05/22/2018 Mental [...] Pain N Stomach trouble N Heart Attack (DC) N Ulcers N Diabetes N Rheumatic Fever N Bleeding Disorder N Tuberculosis N AIDS/HIV N Hyperlipidemia N Asthma N Epilepsy/Seizures N Sleep Disorder N Hepatitis N Heart Disease N Hypertension Y Immunizations Vaccine Type Date Status Note Provider Nam e and Address Organization Details Recorded Time Influenza, MDCK, quadrivalent, PF 04/02/2020 completed Jeanne Shad null, [facility] 01/31/2024 14:56:03 COVID-19 vaccine, vector-nr, rS-Ad26, PF, 0.5 mL 12/10/2020 completed Jeanne Shad null, [facility] 01/31/2024 14:56:03 Tdap 02/07/2020 completed [facility] 01/31/2024 14:56:03 Influenza, split virus, quadrivalent, PF 01/19/2016 completed Jeanne Shad null, [facility] 01/31/2024 14:56:03 Influenza, split virus, quadrivalent, PF 01/20/2017 completed [facility] 01/31/2024 14:56:03 Past Encounters Encounter ID Performer Location Encounter Start Date Encounter Closed Date Diagnosis/Indication Diagnosis SNOMED-CT Code Diagnosis ICD10 Code Diagnosis Note [id number] CHARU KRAMER MD [facility] [address] [place] [address] 05/22/2018 12:33:17 05/23/2018 09:19:15 Idiopathic osteoarthritis 821524139 M19.91 Right long finger, Pain may have been initially triggered by a fall although he has idiopathic arthritis. Injection, Follow-up 6 weeks to consider further management .? Arthroscop y MP joint with debridemen t [id number] TANNER SIMPSON MD [facility] [address] [place] [address] 08/08/2018 15:08:22 08/08/2018 16:39:22 Arthritis of hand 402091725 M13.841 M13.842 X-rays of bilateral hands reveal moderate to severe arthritic changes involving bilateral long finger MCP joints. There are also mild arthritic changes involving the ring finger MCP joints as well as IP joints the hand. Mild to moderate arthritic changes within bilateral wrist as well. [id number] [facility] [address] [place] [address] 02/08/2020 09:03:17 02/08/2020 09:45:19 Laceration of finger of left hand 3240993488 6598810 S61.211A Thumb and index finger from a head bone grinder [id number] CACHORRO HARTMAN, OTR/L, CHT PHYSICAL THERAPY / HAND THERAPY [facility] [address] [place] [address] 02/08/2020 10:11:40 02/08/2020 11:15:01 Laceration of finger of left hand 3665801610 6861771 S61.211A [id number] [facility] [address] [place] [address] 02/18/2020 13:54:31 02/18/2020 14:14:41 Laceration of finger of left hand 6820435306 4027286 S61.211A Thumb and index finger from a head bone grinder [id number] WILLA BROWN MD [facility] [address] [place] [address] 10/05/2022 14:31:41 10/05/2022 16:36:20 Pain of left shoulder joint 7590600348 6048380 M25.512 [id number] WILLA BROWN MD [facility] [address] [place] [address] 10/07/2022 07:56:14 10/07/2022 08:53:46 Rupture of rotator cuff of left shoulder 3787085531 5150694 M75.102 supraspina tus and subscapula ris [id number] WILLA BROWN MD [facility] [address] [place] [address] 11/22/2022 15:49:29 11/22/2022 17:15:20 Rupture of rotator cuff of left shoulder 8884087623 2663318 M75.102 supraspina tus and infraspina tus Traumatic rupture of biceps tendon 590912330 S46.212A [id number] WILLA BROWN MD SURGERY SCHEDULE [address] [place] [address] 12/22/2022 08:18:29 12/22/2022 08:19:08 [id number] CHINA PEARCE PA-C [facility] [address] [place] [address] 01/04/2023 09:17:42 01/04/2023 09:58:53 Postoperative care 758014353 Z48.89 [id number] WILLA BROWN MD [facility] [address] [place] [address] 01/25/2023 08:49:55 01/25/2023 09:24:07 Postoperative care 612776673 Z48.89 5 weeks s/p left shoulder arthroscop y with rotator cuff repair, biceps tenotomy of fragment, and debridemen t labrum (DOS: 12/22/2022) [id number] WILLA BROWN MD [facility] [address] [place] [address] 03/01/2023 08:25:09 03/01/2023 09:29:05 Postoperative care 778303001 Z48.89 10 weeks s/p left shoulder arthroscop y with rotator cuff repair, biceps tenotomy of fragment, and debridemen t labrum (DOS: 12/22/2022) [id number] WILLA BROWN MD [facility] [address] [place] [address] 03/15/2023 16:05:25 03/15/2023 17:43:20 Postoperative care 484066934 Z48.89 12 weeks s/p left shoulder arthroscop y with rotator cuff repair, biceps tenotomy of fragment, and debridemen t labrum (DOS: 12/22/2022) [id number] WILLA BROWN MD [facility] [address] [place] [address] 04/26/2023 15:54:43 04/26/2023 18:16:38 History of repair of musculotendinous cuff of shoulder 470207344 Z98.890 4 months s/p left shoulder RC repair [id number] MD CELIO SILVA [facility] [address] [facility] [place] [address] 11/16/2023 14:32:29 11/17/2023 04:22:40 Dysfunction of left eustachian tube 9688491662 559223 H69.92 Serous rocco tis media of left ear 0693401267 147850 H65.92 Retraction of tympanic membrane 86419753 H73.899 severe [id number] NAYELI LOPES MD HEART [address] [place] [address] 12/16/2023 14:29:16 12/16/2023 14:42:30 Pre-surgery testing 390995350 Z01.89 [id number] MD CELIO SILVA [facility] [address] [place] [address] 01/31/2024 14:25:36 01/31/2024 16:11:30 Dysfunction of left eustachian tube 3885783144 811866 H69.92 *01/06/24 S/p LMT Tube (T-tube) Placement with mastoid debridemen t- 01/31/[address] and patent, left TM is less retracted than it was before surgery; cavity is nice and clear today Serous rocco tis media of left ear 1009662530 324529 H65.92 *01/06/24 S/p LMT Tube (T-tube) Placement Retraction of tympanic membrane 56224504 H73.899 severe- 01/31/24 retraction looks much better s/p LMT placement [id number] PACO BYRNES [facility] [address] [facility] [place] [address] 08/01/2024 14:56:13 08/07/2024 12:58:40 Dysfunction of left eustachian tube 3157836866 754711 H69.92 *01/06/24 S/p LMT Tube (T-tube) Placement with mastoid debridemen t- 01/31/[address] and patent, left TM is less retracted than it was before surgery; cavity is nice and clear today08/01- tube is present and patent Serous rocco tis media of left ear 7245674191 147283 H65.92 *01/06/24 S/p LMT Tube (T-tube) Placement Retraction of tympanic membrane 60782909 H73.899 severe- 01/31/24 retraction looks much better s/p LMT placement Eczema of external auditory canal 24948408 H60.549 Chronic le ft mastoiditis 4822030038 880189 H70.12 Asymmetric al sensorineural hearing loss 965344685 H90.5 08/01/24-a udiogram [id number] LIZA COX [place] [facility] [address] [facility] [place] [address] 08/01/2024 15:26:08 08/01/2024 16:06:09 Dysfunction of bilateral eustachian tubes 9673751874 501480 H69.93 Conductive hearing loss, bilateral 131306721 H90.0 Health Concerns Section Related Observation LastModified by Organization Detai ls LastModified Time None Recorded Concern Status LastModified by Organization Details LastModified Time None Recorded Advance Directives Directive None Recorded Payers Insurance Date Sequence Insurance Name Policy Number Policy Irene Covered Member ID Irene Member ID Guarantor Name 08/07/2024 1 [place] [id number] Marek Zamora Kevin [id number] Marek Zamora Kevin 10/05/2022 1 [place] [id number] Marek Brown Jr [id number] Marek Noah Kevin Notes Date Note Type Note Provider Name and Address Organization Details Recorded Time 11/16/2023 text/html Rodrigo visits us in office today to follow up on his left ETD. Pt has muffled hearing in the left ear. The left ear has underwent multiple surgeries. Pressure is felt in the left ear today. PACO BYRNES MD [address] [place] [address] [place], [address], [facility] 11/16/2023 16:26:41 01/31/2024 text/html Rodrigo visits us in office today S/p LMT Tube (T-tube) Placement performed on 01/06/24. Rodrigo feels that the tube has helped some, but his left ear still feels slightly muffled with the tube and he gets an occasional earache. He has noticed his hearing is better in his left ear. PACO BYRNES MD [facility] [place], [address], [facility] 01/31/2024 15:10:44 08/01/2024 text/html Rodrigo visits us in office today to follow up on ETD and hearing loss. Pt has not presented with infection in either ear. He notes experiencing itching in the right ear recently. Pt does use Q-tips regularly to clean the ears. PACO BYRNES MD [facility] [place], [address], [facility] 08/01/2024 16:18:52
[2024-08-29 07:45] VITALS: BMI 34.0
[2024-08-29 07:50] VITALS: BP 144/93; PULSE 64; RESP 17; O2SAT 97
[2024-08-29] MEDS: METOPROLOL TARTRATE 50MG TABLET PO (07:57)
--- NOTE | 2024-08-29 08:30 | CT_ITS ---
APPROVED REPORT Fund Director: CLINICAL INDICATION Chest Pain TECHNIQUE Image Acquisition: A 128 slice MDCT scanner ([employer]) was used for data acquisition. A noncontrast coronary calcium scan was performed. A CT attenuation threshold of 130 Hounsfield units (HU) was used for the detection of calcium in contiguous voxels of 1 sq mm in area to be counted as individual lesions. Bolus tracking in the ascending aorta with a threshold of 180 HU was performed. Immediately afterwards, ECG synchronized cardiac CT was then performed from the cardiac base to apex using retrospective gating with ECG tube current modulation. A total of 85 mL of Isovue 370 mg/mL contrast medium was administered at 5 mL/sec followed by a saline flush using a biphasic injection protocol. A tube voltage of 120 KVp was used. The patient received the following medications prior to the cardiac CT. 25 mg of oral metoprolol 0.8 mg of sublingual nitroglycerin The average heart rate at the time of acquisition was 58 bpm and regular. Image Reconstruction Transaxial images were reconstructed at 0.67 mm slide thickness. Data was reviewed interactively on an advanced workstation capable of 2 and 3-dimensional displays in all conventional reconstruction formats, including multiplanar reformations, maximum intensity projections, curved multiplanar reformations, and volume rendered reconstructions. When applicable, selected routine images describing the relevant coronary anatomy and pathology were saved and sent to PACS. Complications None Technical Quality Overall image quality was good. Coronary artery opacification was adequate. Total DLP (Dose-Length Product) is 1362.0 mGy-cm. The reported value represents the total of one or more individual components during the CT acquisition of this date and at this time, and as such, the same value may appear in more than one CT report depending on the interpreting/reporting physicians. COMPARISON None FINDINGS CT Coronary Calcium Scoring LMA (Left Main Artery) = 0 LAD (Left Anterior Descending) = 25 LCX (Left Coronary Circumflex) = 16 RCA (Right Coronary Artery) = 0 Total Calcium Score = 41 using the AJ-130 method. The observed calcium score of 41 is at 62nd percentile for subjects of the same age, sex, and race/ethnicity. The interpretation of the calcium heart score is based on the following continuum*: 0 = no calcified plaque detected (risk of coronary artery disease is very low ??? less than 5%) 1-10 = calcium detected in extremely minimal levels (risk of coronary diseases is still low ??? less than 10%) 11-100 = mild levels of plaque detected with certainty (mild or minimal narrowing of heart arteries is likely) 101-400 = definite,at least moderate levels of plaque detected (relatively high risk of a heart attack within 3-5 years) >401-999 = extensive levels of plaque detected (high risk of heart attack, high levels of vascular disease are present, high likelihood of at least one significant coronary narrowing) *The calcium heart score quantifies the burden of coronary calcification/plaque in the coronary arteries. The calcium heart score is not able to evaluate the presence or burden of non-calcified (i.e. soft) plaque. There is no identifiable calcification in the aortic valve, mitral annulus or mitral valve, pericardium, or myocardium. Coronary CT Angiography The coronary arterial system is right dominant. Quantitative Stenosis Grading: Left Main (LM): The left main originates normally from the left sinus of Valsalva. The LM bifurcates into the left anterior descending artery and left circumflex artery. The LM is patent with no evidence of atherosclerosis. Left Anterior Descending (LAD) and Diagonal Branches: The LAD gives off 2 diagonal branch(es). There is mixed calcified/noncalcified plaque in the proximal LAD, with no evidence of luminal stenosis. There is no evidence of LAD-myocardial bridge. Left Circumflex (LCX) and Obtuse Marginals (OM): The LCX gives off 1 Obtuse Marginal (OM) branch(es). There is mixed calcified/noncalcified plaque in the ostial LCx, with up to 25-49% luminal stenosis. Right Coronary Artery (RCA): The RCA originates normally from the right sinus of Valsalva. The RCA gives off a posterior descending artery (PDA) and posterolateral (PL) branches. Noncalcified plaque in the proximal RCA, with < 25% luminal stenosis. Non-Coronary Cardiac Findings: Analysis of the left ventricular (LV) structure and function was performed after 3-D reconstruction of the LV from axial images, with user-corrected automatic contouring for assessment of LV volumes and user-defined reconstruction from oblique planes for measurement of 3-D cardiac structure and function. -The left ventricle systolic function is normal. -There is no left atrial appendage filling defect. Two right pulmonary veins and two left pulmonary veins drain normally into the left atrium. -No pericardial thickening or calcification. -Central and branch pulmonary arteries in the [id number] are unremarkable. -Thoracic aorta within the visualized thoracic aortic-branches in the [id number]-iorb is unremarkable. Extracardiac Structures No significant extra-cardiac findings. Note, however, that this study is focused on the cardiac findings. IMPRESSION -Presence of coronary calcification with an Agatston score = 41 using the AJ-130 method. -The observed calcium score of 41 is at 62nd percentile for subjects of the same age, sex, and race/ethnicity. - Mild, nonobstructive atherosclerotic coronary disease, with no evidence of significant flow-limiting atherosclerosis of the coronary arteries. -CAD-RADS 2. Management recommendations per ACC/AHA guidelines*, as clinically appropriate. *Recommendations: CAD RADS 0: Reassurance. Consider non-atherosclerotic causes of chest pain. CAD RADS 1: Consider non-atherosclerotic causes of chest pain. Consider preventive therapy and risk factor modification. CAD RADS 2: Consider non-atherosclerotic causes of chest pain. Consider preventive therapy and risk factor modification, particularly for patients with nonobstructive plaque in multiple segments. CAD RADS 3: Consider further functional testing. Consider symptom-guided anti-ischemic and preventive pharmacotherapy as well as risk factor modification per published guideline statements. CAD RADS 4A: Consider further functional testing or invasive coronary angiography with revascularization per published guideline statements. Consider symptom-guided anti-ischemic and preventive pharmacotherapy as well as risk factor modification per published guideline statements. CAD RADS 4B: Invasive coronary angiography recommended with revascularization per published guideline statements. Consider symptom-guided anti-ischemic and preventive pharmacotherapy as well as risk factor modification per published guideline statements. CAD RADS 5: Consider invasive angiography and/or viability assessment with revascularization per published guideline statements. Consider symptom-guided anti-ischemic and preventive pharmacotherapy as well as risk factor modification per published guideline statements. CRITICAL RESULT None COMMUNICATION Per this written report The coronary and cardiac findings of this CCTA were reviewed, reported, and signed by Tab Renee MD (Admin Secretary) Conclusion Electronically signed by : Naomy Renee MD 08/30/2024 13:22:55
[2024-08-29 08:32] LABS: Anion Gap 7.1 mEq/L (5-15); Blood Urea Nitrogen 17 mg/dl (9-20); Calcium 8.5 mg/dl (8.4-10.2); Carbon Dioxide 25 mmol/L (22.0-30.0); Chloride 111 mmol/L (98-107); Creatinine Clearance Estimated 150 mL/min (50-200); Estimated Glomerular Filt Rate 100 ml/min (>60); GFR (African American) 121 ML/MIN (>60); Glucose 101 mg/dl (74-100); Sodium 138 mmol/L (136-145)
[2024-08-29 08:37] LABS: Potassium 5.1 mmoL/L (3.5-5.1)
[2024-08-29 09:20] VITALS: BP 154/106; PULSE 60; RESP 17; O2SAT 98
[2024-08-29 09:22] VITALS: BP 140/89; PULSE 57; RESP 17; O2SAT 98
[2024-08-29 09:25] VITALS: BP 130/82; PULSE 71; RESP 18; O2SAT 95
[2024-08-29] MEDS: IOPAMIDOL-370 (76%);100ML BOTTLE 80 ML IV (09:28)
[2024-08-29] MEDS: 0.9 % SODIUM CHLORIDE 50 ML VIAL IV (09:28)
[2024-08-29] MEDS: SODIUM CHLORIDE 0.9% 10ML SYR (RAD ONLY) 10 ML IV (09:28)
[2024-08-29 09:30] VITALS: BP 113/73; PULSE 65; RESP 17; O2SAT 96
== END 2024-08-29 09:31 | disposition home or self-care (01) ==
PROVIDERS: PCP Internal Medicine; Visit Provider Physician Assistant
DX: R07.9 Chest pain, unspecified (principal); R94.31 Abnormal electrocardiogram [ECG] [EKG]; R06.00 Dyspnea, unspecified
CPT/HCPCS: 75574; 80048; Q9967

== ENCOUNTER 2024-08-31 08:34 | Day surgery (SDC) | payer BC, SELFPAY ==
[2024-08-31] VITALS (10 sets, daily range): BP systolic 103–167; BP diastolic 69–104; PULSE 58–70; RESP 16–19; TEMP 36.6; O2SAT 92–97; BMI 34.0
--- NOTE | 2024-08-31 07:04 | IR_ITS ---
APPROVED REPORT Patient Location: [facility] Operator: Justin Cole, RT (R) PROCEDURES Left heart catheterization Left ventriculogram Selective coronary angiogram INDICATION Abnormal Myoview, Angina pectoris Informed consent was obtained prior to the procedure. COMPLICATIONS NONE Estimated Blood Loss: LESS THAN 10 ML TECHNIQUE One percent lidocaine used to anesthetize the right anterior aspect of the wrist. The right radial artery was accessed via the Seldinger technique. A 6 [place] sheath was placed in the right radial artery. 2.5 mg of Verapamil, 800 mcg of nitroglycerin, 1mg Lidocaine and 5000 U Heparin were given through the arterial sheath. The JL3 catheter was also used to perform selective coronary angiogram. At the end of the procedure the sheath was removed good hemostasis was achieved using Traclet band, patient was transferred to the postop holding area in stable condition. ANGIOGRAPHIC RESULTS The left main artery Normal The left anterior descending artery Proximally normal with a mid vessel eccentric 30 to 40% stenosis The circumflex artery Mild luminal regularities The right coronary artery Dominant with N[place]HO[place] II flow with 10% diffuse luminal regularities The MCLEOD ventriculogram reveals Not performed The left ventricular end-diastolic pressure Not measured IMPRESSION Mild to moderate mid LAD disease as described above Slow flow down the right coronary artery consistent with endothelial dysfunction PLAN 1. Risk factor modification 2. Medical management 3. LDL less than 55 achieved with high intensity statin 4. Recommend sleep study Electronically signed by : Lazarus Benavides MD 08/31/2024 11:47:15
[2024-08-31 09:06] LABS: Basophils # 0.1 K/mm3 (0-0.2); Basophils % 0.7 % (0.1-2.0); Eosinophils # 0.2 Kmm3 (0.0-0.4); Eosinophils % 2.5 % (0.1-12.0); Hematocrit 43.9 % (42.0-52.0); Hemoglobin 14.5 g/dL (14.1-18.0); Immature Granulocytes # 0.02 10^3uL; Immature Granulocytes % 0.2 %; Lymphocytes # 2.7 K/mm3 (0.7-4.5); Lymphocytes % 33.3 % (10-50); Mean Corpuscular Hemoglobin 28.3 pg (27.0-31.2); Mean Corpuscular Volume 85.7 fl (80-94); Mean Platelet Volume 11.5 fl (7.4-10.4); Monocytes # 0.6 K/mm3 (0.1-1.0); Monocytes % 7.8 % (1.7-9.3); Neutrophils # 4.5 K/mm3 (1.8-7.8); Neutrophils % 55.5 % (37.0-80.0); Nucleated Red Blood Cells # 0 10^3/uL; Nucleated Red Blood Cells % 0 %; Platelet Count 198 K/mm3 (142-424); Red Blood Count 5.12 M/mm3 (4.60-6.20); Red Cell Distribution Width 13.2 % (11.5-17.5); Red Cell Distribution Width-SD 41.1 fL
[2024-08-31 09:13] LABS: Chloride 108 mmol/L (98-107); Potassium 4.1 mmoL/L (3.5-5.1); Sodium 139 mmol/L (136-145)
[2024-08-31 09:16] LABS: Anion Gap 8.1 mEq/L (5-15); Blood Urea Nitrogen 18 mg/dl (9-20); Carbon Dioxide 27 mmol/L (22.0-30.0); Creatinine Clearance Estimated 134 mL/min (50-200); Estimated Glomerular Filt Rate 87 ml/min (>60); GFR (African American) 105 ML/MIN (>60)
[2024-08-31 09:17] LABS: Calcium 8.9 mg/dl (8.4-10.2); Glucose 124 mg/dl (74-100)
[2024-08-31] MEDS: HEPARIN 1,000 UNITS/500ML NS (CATH LAB) 3000 UNIT IV (11:22)
[2024-08-31] MEDS: LIDOCAINE 1% 10ML MDV 10 ML IJ (11:22)
[2024-08-31] MEDS: VERAPAMIL 2.5MG/ML 2ML VIAL 2.5 MG IV (11:23)
[2024-08-31] MEDS: diphenhydrAMINE 50MG/ML VIAL 50 MG IV (11:23)
[2024-08-31] MEDS: NITROGLYCERIN 800MCG/8ML SYR (CATH LAB) 800 MCG IA (11:23)
[2024-08-31] MEDS: 0.9 % SODIUM CHLORIDE 500 ML 25 ML IV (11:23)
[2024-08-31] MEDS: HEPARIN 1,000 UNITS/ML 10ML VIAL (CATH LAB) 5000 UNIT IV (11:23)
[2024-08-31] MEDS: MIDAZOLAM HCL 1MG/ML 5ML VIAL 1 MG IV (11:24)
[2024-08-31] MEDS: FENTANYL 100MCG/2ML VIAL 50 MCG IV (11:24)
[2024-08-31] MEDS: IOPAMIDOL-370 (76%);100ML BOTTLE 50 ML IV (14:10)
== END 2024-08-31 14:17 | disposition home or self-care (01) ==
PROVIDERS: PCP Internal Medicine; Visit Provider Internal Medicine
PROC: 4A023N7 Measurement of Cardiac Sampling and Pressure, Left Heart, Percutaneous Approach (ICD-10-PCS; CPT 93452; principal; 2024-08-31 09:45)
DX: I25.118 Atherosclerotic heart disease of native coronary artery with other forms of angina pectoris (principal); R94.31 Abnormal electrocardiogram [ECG] [EKG]; R00.2 Palpitations; Z79.899 Other long term (current) drug therapy; I10 Essential (primary) hypertension; Z82.49 Family history of ischemic heart disease and other diseases of the circulatory system; E78.5 Hyperlipidemia, unspecified; K21.9 Gastro-esophageal reflux disease without esophagitis
CPT/HCPCS: 80048; 85025; 93458; 99152; C1725; C1769; J1200; J1644; J3010; Q9967

== ENCOUNTER → 2024-10-12 09:11 | Outpatient (CLI) | payer BC, SELFPAY ==
--- OUTSIDE RECORDS SUMMARY | 2024-10-12 09:13 | XMS_ITS ---
Author Organization Unknown Medications Medication Instructions Effective Dates (start - stop) Status lisinopril 10 MG Oral Tablet 202 06-19-16:00:00.000+00 :00 - Completed allopurinol 300 MG Oral Tablet 2 570-15-07H43:00:00.000+00 :00 - Completed metformin hydrochloride 500 MG Oral Tablet 3424-33-25N70:00:00.000+00 :00 - Completed lisinopril 10 MG Oral Tablet 202 06-18-03:00:00.000+00 :00 - Completed amlodipine 5 MG Oral Tablet 2021:00:00.000+00 :00 - Completed naltrexone 380 MG Injection [Vivitrol] 1838-53-58H39:00:00.000+00 :00 - Completed meloxicam 7.5 MG Oral Tablet 06-22-16:00:00.000+00 :00 - Completed lisinopril 10 MG Oral Tablet 05-29-10:00:00.000+00 :00 - Completed meloxicam 7.5 MG Oral Tablet 06-19-24:00:00.000+00 :00 - Completed allopurinol 300 MG Oral Tablet 2 260-72-95I11:00:00.000+00 :00 - Completed naltrexone hydrochloride 50 MG Oral Tablet 8707-91-05R00:00:00.000+00 :00 - Completed allopurinol 300 MG Oral Tablet 2 233-34-58C79:00:00.000+00 :00 - Completed lisinopril 10 MG Oral Tablet 05-26-07:00:00.000+00 :00 - Completed {21 (methylprednisolone 4 MG Oral Tablet) } Pack [id number]:00:00.000+00 :00 - Completed allopurinol 300 MG Oral Tablet 2 628-32-24R55:00:00.000+00 :00 - Completed - 9891-33-48C66:00 :00.000+00 :00 - Completed {21 (methylprednisolone 4 MG Oral Tablet) } Pack [id number]:00:00.000+00 :00 - Completed hydroxychloroquine sulfate 2 00 MG Oral Tablet [id number]:00:00.000+00 :00 - Completed phentermine hydrochloride 37 .5 MG Oral Tablet [id number]:00:00.000+00 :00 - Completed hydroxychloroquine sulfate 2 00 MG Oral Tablet [id number]:00:00.000+00 :00 - Completed phentermine hydrochloride 37 .5 MG Oral Tablet 7293-46-25C91:00:00.000+00 :00 - Completed hydroxychloroquine sulfate 2 00 MG Oral Tablet [id number]:00:00.000+00 :00 - Completed hydroxychloroquine sulfate 2 00 MG Oral Tablet [id number]:00:00.000+00 :00 - Completed hydroxychloroquine sulfate 2 00 MG Oral Tablet 1157-46-77Q57:00:00.000+00 :00 - Completed phentermine hydrochloride 37 .5 MG Oral Tablet 8000-95-90P14:00:00.000+00 :00 - Completed hydroxychloroquine sulfate 2 00 MG Oral Tablet 2123-07-86W95:00:00.000+00 :00 - Completed hydroxychloroquine sulfate 2 00 MG Oral Tablet 5165-83-35E11:00:00.000+00 :00 - Completed hydroxychloroquine sulfate 2 00 MG Oral Tablet 5227-56-68P31:00:00.000+00 :00 - Completed hydroxychloroquine sulfate 2 00 MG Oral Tablet 6604-27-12N04:00:00.000+00 :00 - Completed allopurinol 300 MG Oral Tablet [id number]:00:00.000+00 :00 - Completed allopurinol 300 MG Oral Tablet 2 [id number]:00:00.000+00 :00 - Completed Patient Care team information Name Category Status Period Participants - - Proposed period not known -
--- OUTSIDE RECORDS SUMMARY | 2024-10-12 09:13 | XMS_ITS | Data Portability ---
Author Organization [facility] KAEL Huston [place] CLOS[facility] Address [address] [address] [place] [address] Care Team Providers Care Door Frame Builder Name Role Phone RAHDA CLAIRE Primary Care Provider [phone] Assessment No assessment recorded. Plan of Treatment Reminders Order Date Submit Date Provider Last Modified By Organization Details Last Modified Time Details Appointments RECHECK 2025 03:40P M PACO BYRNES MD Not available Not available Not available Lab None recorded. Referral None recorded. Procedures None recorded. Surgeries None recorded. Imaging electroca rdiogram 2023 024 [email or web address] [facility], [address] [facility] , [address], [place], [address], 12/16/2023 15:43:01 Medication Orders DermOtic Oil 0.01 % ear drops 2024 025 [facility] 591, [address], [address], 08/02/2024 11:06:32 Patient TargetsNo targets recorded. Patient Instructions Encounter Date Encounter Id Patient Instructions Last Modified By Organization Details Last Modified Time 11/16/2023 [id number] 1. Recommended L MT Tube (T-Tube) Placement [...] We will obtain his medical records from [facility] including his hearing test Not available 11/16/2023 16:26:29 01/31/2024 [id number] 1. F/u in 6 fernando hs with [...] 6 months. Not available 01/31/2024 15:10:28 08/01/2024 [id number] 1. Audiogram obtained in office today. Results [...] 10*3/ uL 3.8-10 .8 normal Not Available [facility] [address] [place] [address], [address], 12/16/2023 18:24:31 12/16/19 24 12/16/2023 COMPL ETE BLOOD COUNT red blood cells 5.10 10*6/ uL 4.20-5 .80 normal Not Available [facility] [address] [place] [address], [address], 12/16/2023 18:24:31 12/16/19 24 12/16/2023 COMPL ETE BLOOD COUNT hemoglobin 14.8 g/dL 14.0-1 8.0 normal Not Available [facility] [address] [place] [address], [address], 12/16/2023 18:24:31 12/16/19 24 12/16/2023 COMPL ETE BLOOD COUNT hematocrit 44.2 % 40.0-5 2.0 normal Not Available [facility] [address] [place] [address], [address], 12/16/2023 18:24:31 12/16/19 24 12/16/2023 COMPL ETE BLOOD COUNT MCV 87 fL 80-100 normal Not Available [facility] [address] [place] [address], [address], 12/16/2023 18:24:31 12/16/19 24 12/16/2023 COMPL ETE BLOOD COUNT MCH 29 pg 26-35 normal Not Available [facility] [address] [place] [address], [address], 12/16/2023 18:24:31 12/16/19 24 12/16/2023 COMPL ETE BLOOD COUNT MCHC 34 g/dL 32-36 normal Not Available [facility] [address] [place] [address], [address], 12/16/2023 18:24:31 12/16/19 24 12/16/2023 COMPL ETE BLOOD COUNT RDW 14.0 % 11.0-1 5.0 normal Not Available [facility] [address] [place] [address], [address], 12/16/2023 18:24:31 12/16/19 24 12/16/2023 COMPL ETE BLOOD COUNT MPV 9.4 fL 6.2-10 .5 normal Not Available [facility] [address] [place] [address], [address], 12/16/2023 18:24:31 12/16/19 24 12/16/2023 COMPL ETE BLOOD COUNT platelet count 202 10*3/ uL 150-40 0 normal Not Available [facility] [address] [place] [address], [address], 12/16/2023 18:24:31 12/16/19 24 12/16/2023 COMPL ETE BLOOD COUNT neutrophil,a bsolute 5.0 10*3/ uL 1.6-8. 4 normal Not Available [facility] [address] [place] [address], [address], 12/16/2023 18:24:31 12/16/19 24 12/16/2023 COMPL ETE BLOOD COUNT lymphocyte,a bsolute 2.6 10*3/ uL 0.4-5. 1 normal Not Available [facility] [address] [place] [address], [address], 12/16/2023 18:24:31 12/16/19 24 12/16/2023 COMPL ETE BLOOD COUNT monocyte,abs olute 0.6 10*3/ uL 0.0-1. 2 normal Not Available [facility] [address] [place] [address], [address], 12/16/2023 18:24:31 12/16/19 24 12/16/2023 COMPL ETE BLOOD COUNT eosinophil,a bsolute 0.2 10*3/ uL 0.0-0. 8 normal Not Available [facility] [address] [place] [address], [address], 12/16/2023 18:24:31 12/16/19 24 12/16/2023 COMPL ETE BLOOD COUNT basophil,abs olute 0.1 10*3/ uL 0.0-0. 3 normal Not Available [facility] [address] [place] [address], [address], 12/16/2023 18:24:31 12/16/19 24 12/16/2023 COMPL ETE BLOOD COUNT % neutrophils 59.0 % 42.0-7 8.0 normal Not Available [facility] [address] [place] [address], [address], 12/16/2023 18:24:31 12/16/19 24 12/16/2023 COMPL ETE BLOOD COUNT % lymphocytes 30.6 % 11.0-4 7.0 normal Not Available [facility] [address] [place] [address], [address], 12/16/2023 18:24:31 12/16/19 24 12/16/2023 COMPL ETE BLOOD COUNT % monocytes 6.9 % 0.0-11 .0 normal Not Available [facility] [address] [place] [address], [address], 12/16/2023 18:24:31 12/16/19 24 12/16/2023 COMPL ETE BLOOD COUNT % eosinophils 2.8 % 0.0-7. 0 normal Not Available [facility] [address] [place] [address], [address], 12/16/2023 18:24:31 12/16/19 24 12/16/2023 COMPL ETE BLOOD COUNT % basophils 0.7 % 0.0-3. 0 normal Not Available [facility] [address] [place] [address], [address], 12/16/2023 18:24:31 12/16/19 24 12/16/2023 COMPL ETE BLOOD COUNT nucleated red cells 0.1 % 0.0-0. 9 normal Not Available [facility] [address] [place] [address], [address], 12/16/2023 18:24:31 12/16/19 24 12/16/2023 COMPL ETE BLOOD COUNT nucleated RBCs, absolute 0.01 10*3/ uL not estab. normal Not Available [facility] [address] [place] [address], [address], 12/16/2023 18:24:31 12/16/19 24 12/16/2023 COMP. METAB OLIC PANEL glucose 94 mg/dL 74-100 normal Not Available [facility] [address] [place] [address], [address], 12/16/2023 18:32:19 12/16/19 24 12/16/2023 COMP. METAB OLIC PANEL blood urea nitrogen 15 mg/dL 6-20 normal Not Available [facility] [address] [place] [address], [address], 12/16/2023 18:32:19 12/16/19 24 12/16/2023 COMP. METAB OLIC PANEL creatinine 0.96 mg/dL 0.70-1 .28 normal Not Available [facility] [address] [place] [address], [address], 12/16/2023 18:32:19 12/16/19 24 12/16/2023 COMP. METAB OLIC PANEL BUN/creatini ne ratio 16 (calc ) 10-20 normal Not Available [facility] [address] [place] [address], [address], 12/16/2023 18:32:19 12/16/19 24 12/16/2023 COMP. METAB OLIC PANEL sodium 139 mmol/ L 136-14 5 normal Not Available [facility] [address] [place] [address], [address], 12/16/2023 18:32:19 12/16/19 24 12/16/2023 COMP. METAB OLIC PANEL potassium 4.2 mmol/ L 3.4-5. 0 normal Not Available [facility] [address] [place] [address], [address], 12/16/2023 18:32:19 12/16/19 24 12/16/2023 COMP. METAB OLIC PANEL chloride 102 mmol/ L 98-107 normal Not Available [facility] [address] [place] [address], [address], 12/16/2023 18:32:19 12/16/19 24 12/16/2023 COMP. METAB OLIC PANEL carbon dioxide 24 mmol/ L 22-31 normal Not Available [facility] [address] [place] [address], [address], 12/16/2023 18:32:19 12/16/19 24 12/16/2023 COMP. METAB OLIC PANEL anion gap 13 (calc ) 7-25 normal Not Available [facility] [address] [place] [address], [address], 12/16/2023 18:32:19 12/16/19 24 12/16/2023 COMP. METAB OLIC PANEL calcium 9.6 mg/dL 8.6-10 .2 normal Not Available [facility] [address] [place] [address], [address], 12/16/2023 18:32:19 12/16/19 24 12/16/2023 COMP. METAB OLIC PANEL total protein 7.3 g/dL 6.4-8. 3 normal Not Available [facility] [address] [place] [address], [address], 12/16/2023 18:32:19 12/16/19 24 12/16/2023 COMP. METAB OLIC PANEL albumin 4.5 g/dL 3.5-5. 2 normal Not Available [facility] [address] [place] [address], [address], 12/16/2023 18:32:19 12/16/19 24 12/16/2023 COMP. METAB OLIC PANEL globulin 2.8 1.5-4. 5 normal Not Available [facility] [address] [place] [address], [address], 12/16/2023 18:32:19 12/16/19 24 12/16/2023 COMP. METAB OLIC PANEL albumin/glob ulin ratio 1.6 (calc ) 1.1-2. 5 normal Not Available [facility] [address] [place] [address], [address], 12/16/2023 18:32:19 12/16/19 24 12/16/2023 COMP. METAB OLIC PANEL bilirubin, total 0.4 mg/dL 0.1-1. 2 normal Not Available [facility] [address] [place] [address], [address], 12/16/2023 18:32:19 12/16/19 24 12/16/2023 COMP. METAB OLIC PANEL alkaline phosphatase 52 U/L 40-129 normal Not Available [facility] [address] [place] [address], [address], 12/16/2023 18:32:19 12/16/19 24 12/16/2023 COMP. METAB OLIC PANEL AST 18 U/L 0-40 normal Not Available [facility] [address] [place] [address], [address], 12/16/2023 18:32:19 12/16/19 24 12/16/2023 COMP. METAB OLIC PANEL ALT 21 U/L 0-41 normal Not Available [facility] [address] [place] [address], [address], 12/16/2023 18:32:19 12/16/19 24 12/16/2023 COMP. METAB [...] patie nts refer to [email or web address] :[email or web address] [email or web address] [email or web address] rg/pr ofess ional s/KDO QI/gf r_cal culat orPed Not Available [facility] [address] [place], [address], 12/16/2023 18:32:19 12/16/19 24 12/16/2023 elect rocar diogr am No observ ation record ed. [email or web address] [facility] [address] [facility], [place], [address], 12/16/2023 15:43:34 12/16/19 24 12/16/2023 elect rocar [...] Tympanogram completed KATIANA THRASHER , AUD [address] [place], [address], [facility] 08/01/2024 15:45:30 5 Audiogram completed KATIANA THRASHER , AUD [address] [place], [address], [facility] 08/01/2024 15:45:28 5 Debridement Mastoid Cavity completed Allan Horton [facility] 08/01/2024 16:12:54 0 OT Manual Therapy cancelled CACHORRO HARTMAN, OTR/L, CHT [address] [place], [address], [facility] 02/18/2020 10:01:42 0 Orthotic, HFO, Static Custom completed CACHORRO HARTMAN OTR/L, CHT [address] [place], [address], [facility] 02/08/2020 11:04:03 0 OT Evaluation - Moderate complexity completed CACHORRO HARTMAN OTR/L, CHT [address] [place], [address], [facility] 02/08/2020 11:03:58 9 Injection Joint/Bursa, Small completed CHARU KRAMER MD [address] [place], [address], [facility] 05/22/2018 13:46:40 Imaging Results None recorded. Procedure [...] Updated DateTime 5 177.8 cm 32.9 kg/m2 797128. 65 g 98.1 [degF] 71 /min 131 mm[Hg] 94 mm[Hg] Denisa Johnson [facility] 5 15:14:14 Date Recorded Body height Body mass index (BMI) Body weight Body temperature Heart rate Systolic blood pressure Diastolic blood pressure Provider Name and Address Organization Details Last Updated DateTime 4 177.8 cm 29.9 kg/m2 94834.9 1 g 98.1 [degF] 94 /min 127 mm[Hg] 89 mm[Hg] Cayla Medina [facility] 4 15:03:47 Date Recorded Body height Body mass index (BMI) Body weight Body temperature Heart rate Systolic blood pressure Diastolic blood pressure Provider Name and Address Organization Details Last Updated DateTime 4 177.8 cm 31.3 kg/m2 31701.4 2 g 97.8 [degF] 67 /min 151 mm[Hg] 100 mm[Hg] Jeanne Kulkarni [facility] 4 14:55:56 Social History Question Answer Notes LastModified by mydala Details LastModified Time Tobacco Smoking Status [facility] 13:48:27 Which Of Your Hands Is Dominant? Right Information not available 05/22/2018 Which Hand Is Involved? Right Information not available 05/22/2018 Marital Status Informatio n not available 05/22/2018 What Was The Date Of Your Most Recent Tobacco Screening? 08/08/2018 Information n ot available 06/05/2019 Sex: Male Functional Status Question Answer Note LastModified by mydala Details LastModified Time Do you use any illicit or recreational drugs? No Information not available 05/22/2018 What is your level of alcohol consumption? 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 Information not available 05/22/2018 Mental Status [...] Pain N Stomach trouble N Heart Attack (NV) N Ulcers N Diabetes N Rheumatic Fever N Bleeding Disorder N Tuberculosis N AIDS/HIV N Hyperlipidemia N Asthma N Epilepsy/Seizures N Sleep Disorder N Hepatitis N Heart Disease N Hypertension Y Immunizations Vaccine Type Date Status Note Provider Nam e and Address Organization Details Recorded Time Influenza, MDCK, quadrivalent, PF 04/02/2020 completed Jeanne Kulkarni [facility] 01/31/2024 14:56:03 COVID-19 vaccine, vector-nr, rS-Ad26, PF, 0.5 mL 12/10/2020 [facility] 01/31/2024 14:56:03 Tdap 02/07/2020 completed Jeanne Kulkarni [facility] 01/31/2024 14:56:03 Influenza, split virus, quadrivalent, PF 01/19/2016 completed Jeanne Kulkarni [facility] 01/31/2024 14:56:03 Influenza, split virus, quadrivalent, PF 01/20/2017 [facility] 01/31/2024 14:56:03 Past Encounters Encounter ID Performer Location Encounter Start Date Encounter Closed Date Diagnosis/Indication Diagnosis SNOMED-CT Code Diagnosis ICD10 Code Diagnosis Note [id number] CHARU KRAMER MD [facility] [address] [place] [address] 05/22/2018 12:33:17 05/23/2018 09:19:15 Idiopathic osteoarthritis 356091633 M19.91 Right long finger, Pain may have been initially triggered by a fall although he has idiopathic arthritis. Injection, Follow-up 6 weeks to consider further management .? Arthroscop y MP joint with debridemen t [id number] TANNER SIMPSON MD ORTH[facility]I [address] [place] [address] 08/08/2018 15:08:22 08/08/2018 16:39:22 Arthritis of hand 831128397 M13.841 M13.842 X-rays of bilateral hands reveal moderate to severe arthritic changes involving bilateral long finger MCP joints. There are also mild arthritic changes involving the ring finger MCP joints as well as IP joints the hand. Mild to moderate arthritic changes within bilateral wrist as well. [id number] CHARU KRAMER MD [facility] [address] [place] [address] 02/08/2020 09:03:17 02/08/2020 09:45:19 Laceration of finger of left hand 6975343014 2075091 S61.211A Thumb and index finger from a die grinder [id number] CACHORRO HARTMAN, OTR/L, CHT PHYSICAL THERAPY / HAND [facility]ERAP[facility] [address] [place] [address] 02/08/2020 10:11:40 02/08/2020 11:15:01 Laceration of finger of left hand 1983468892 7496626 S61.211A [id number] CHARU KRAMER MD [facility] [address] [place] [address] 02/18/2020 13:54:31 02/18/2020 14:14:41 Laceration of finger of left hand 6994485246 8347331 S61.211A Thumb and index finger from a die grinder [id number] WILLA BROWN MD [facility] [address] [place] [address] 10/05/2022 14:31:41 10/05/2022 16:36:20 Pain of left shoulder joint 1600175423 7768782 M25.512 [id number] WILLA BROWN MD [facility] [address] [place] [address] 10/07/2022 07:56:14 10/07/2022 08:53:46 Rupture of rotator cuff of left shoulder 1560147831 9038470 M75.102 supraspina tus and subscapula ris [id number] WILLA BROWN MD [facility] [address] [place] [address] 11/22/2022 15:49:29 11/22/2022 17:15:20 Rupture of rotator cuff of left shoulder 4553341385 0757386 M75.102 supraspina tus and infraspina tus Traumatic rupture of biceps tendon 909211694 S46.212A [id number] WILLA BROWN MD SURGERY SCHEDULE [address] [place] [address] 12/22/2022 08:18:29 12/22/2022 08:19:08 [id number] CHINA PEARCE PA-C [facility] [address] [place] [address] 01/04/2023 09:17:42 01/04/2023 09:58:53 Postoperative care 266955617 Z48.89 [id number] WILLA BROWN MD [facility] [address] [place] [address] 01/25/2023 08:49:55 01/25/2023 09:24:07 Postoperative care 757099902 Z48.89 5 weeks s/p left shoulder arthroscop y with rotator cuff repair, biceps tenotomy of fragment, and debridemen t labrum (DOS: 12/22/2022) [id number] WILLA BROWN MD [facility] [address] [place] [address] 03/01/2023 08:25:09 03/01/2023 09:29:05 Postoperative care 794410156 Z48.89 10 weeks s/p left shoulder arthroscop y with rotator cuff repair, biceps tenotomy of fragment, and debridemen t labrum (DOS: 12/22/2022) [id number] WILLA BROWN MD [facility] [address] [place] [address] 03/15/2023 16:05:25 03/15/2023 17:43:20 Postoperative care 099495749 Z48.89 12 weeks s/p left shoulder arthroscop y with rotator cuff repair, biceps tenotomy of fragment, and debridemen t labrum (DOS: 12/22/2022) [id number] WILLA BROWN MD [facility] [address] [place] [address] 04/26/2023 15:54:43 04/26/2023 18:16:38 History of repair of musculotendinous cuff of shoulder 323510003 Z98.890 4 months s/p left shoulder RC repair [id number] MD CELIO SILVA [facility] [address] [facility] [place] [address] 11/16/2023 14:32:29 11/17/2023 04:22:40 Dysfunction of left eustachian tube 8776203257 867997 H69.92 Serous rocco tis media of left ear 2550073145 830181 H65.92 Retraction of tympanic membrane 21352949 H73.899 severe [id number] NAYELI LOPES MD [facility] [address] [place] [address] 12/16/2023 14:29:16 12/16/2023 14:42:30 Pre-surgery testing 298796165 Z01.89 [id number] MD CELIO SILVA [facility] [address] [facility] [place] [address] 01/31/2024 14:25:36 01/31/2024 16:11:30 Dysfunction of left eustachian tube 0057936752 390640 H69.92 *01/06/24 S/p LMT Tube (T-tube) Placement with mastoid debridemen t- 01/31/[address] and patent, left TM is less retracted than it was before surgery; cavity is nice and clear today Serous rocco tis media of left ear 6837978776 904091 H65.92 *01/06/24 S/p LMT Tube (T-tube) Placement Retraction of tympanic membrane 94374286 H73.899 severe- 01/31/24 retraction looks much better s/p LMT placement [id number] PACO BYRNES MD [place] [facility] [address] [facility] [place] [address] 08/01/2024 14:56:13 08/07/2024 12:58:40 Dysfunction of left eustachian tube 4829983424 907125 H69.92 *01/06/24 S/p LMT Tube (T-tube) Placement with mastoid debridemen t- 01/31/[address] and patent, left TM is less retracted than it was before surgery; cavity is nice and clear today08/01- tube is present and patent Serous rocco tis media of left ear 0914816745 821957 H65.92 *01/06/24 S/p LMT Tube (T-tube) Placement Retraction of tympanic membrane 04052222 H73.899 severe- 01/31/24 retraction looks much better s/p LMT placement Eczema of external auditory canal 09010183 H60.549 Chronic le ft mastoiditis 1155703163 662576 H70.12 Asymmetric al sensorineural hearing loss 211607165 H90.5 08/01/24-a udiogram [id number] LIZA COX [place] [facility] [address] [facility] [place] [address] 08/01/2024 15:26:08 08/01/2024 16:06:09 Dysfunction of bilateral eustachian tubes 4263373475 969768 H69.93 Conductive hearing loss, bilateral 047395411 H90.0 Health Concerns Section Related Observation LastModified by Organization Detai ls LastModified Time None Recorded Concern Status LastModified by Organization Details LastModified Time None Recorded Advance Directives Directive None Recorded Payers Insurance Date Sequence Insurance Name Policy Number Policy Irene Covered Member ID Irene Member ID Guarantor Name 08/07/2024 1 [employer] (PPO) [id number] Marek Brown Jr [id number] Marek Brown 10/05/2022 1 [employer]: BRYAN [employer] [id number] Marek Brown Jr [id number] Marek Brown Notes Date Note Type Note Provider Name and Address Organization Details Recorded Time 11/16/2023 text/html Rodrigo visits us in office today to follow up on his left ETD. Pt has muffled hearing in the left ear. The left ear has underwent multiple surgeries. Pressure is felt in the left ear today. PACO BYRNES MD [address] [place] [address] [place], [address], [facility] 11/16/2023 16:26:41 01/31/2024 text/html Rodrigo visits us in office today S/p LMT Tube (T-tube) Placement performed on 01/06/24. Rodrigo feels that the tube has helped some, but his left ear still feels slightly muffled with the tube and he gets an occasional earache. He has noticed his hearing is better in his left ear. PACO BYRNES MD [address] [place] [address] [place], [address], [facility] 01/31/2024 15:10:44 08/01/2024 text/html Rodrigo visits us in office today to follow up on ETD and hearing loss. Pt has not presented with infection in either ear. He notes experiencing itching in the right ear recently. Pt does use Q-tips regularly to clean the ears. PACO BYRNES MD [address] [place] [address] [place], [address], [facility] 08/01/2024 16:18:52
== END ==
LOC: SL 09:12
PROVIDERS: PCP Physician Assistant; Visit Provider Physician Assistant
DX: G47.33 Obstructive sleep apnea (adult) (pediatric) (principal); G47.36 Sleep related hypoventilation in conditions classified elsewhere
CPT/HCPCS: G0399

== ENCOUNTER 2024-12-18 16:21 | Outpatient (CLI) | payer BC, SELFPAY ==
--- NOTE | 2024-12-18 | XR_ITS ---
PROCEDURE INFORMATION: Exam: XR Right Hand Exam date and time: 12/18/2024 4:31 PM Age: 59 years old Clinical indication: Other: Gout, inflammatory arthritis TECHNIQUE: Imaging protocol: Radiologic exam of the right hand. Views: 3 or more views. COMPARISON: No relevant prior studies available. FINDINGS: Bones/joints: An erosion is identified at the 3rd metacarpal phalangeal joint.. Normal mineralization no evidence of periarticular osteopenia. Soft tissues: Normal. IMPRESSION: Focal erosion at the 3rd metacarpal phalangeal joint, this would be consistent with gout. Normal mineralization. No other acute findings..
--- NOTE | 2024-12-18 | XR_ITS ---
PROCEDURE INFORMATION: Exam: XR Left Hand Exam date and time: 12/18/2024 4:31 PM Age: 59 years old Clinical indication: Other: Gout, inflammatory arthritis TECHNIQUE: Imaging protocol: Radiologic exam of the left hand. Views: 3 or more views. COMPARISON: CR XR HAND LT MIN 3V 02/07/2020 7:46 PM FINDINGS: Bones/joints: Cortical irregularity distal aspect 3rd metacarpal not significantly changed from prior. Soft tissues: Stable 2 mm dense foreign body in the thenar eminence unchanged from prior study in 02/07/2020. IMPRESSION: Stable 2 mm dense foreign body in the thenar eminence unchanged from prior study in 02/07/2020. Cortical irregularity distal aspect 3rd metacarpal not significantly changed from prior.
--- OUTSIDE RECORDS SUMMARY | 2024-12-18 16:23 | XMS_ITS | Encounter Summary ---
Author Organization [facility] yste Address [address] [place] [address] Care Team Providers Care Stitching Machine Operator Name Role Phone Marvel Avalos MD Primary Care Provider [phone] Encounter Details Date Type Department Care Team (Late st Contact Info) Description 11/15/2024 Telephone [facility] [address] [facility] [address] [place] [address] Rey Yang, ELEONORA [address] [facility] [address] [place] [address] Social History Tobacco Use Types Packs/Day Years Used Date Smoking Tobacco: Former Cigarettes Smokeless Tobacco: Never Alcohol Use Standard Drinks/Week Comments Yes 0 (1 standard drink = 0.6 oz pur e alcohol) OCC Abuse Screen Answer Date Recorded Unsafe at Home or Work/School Not on file Feels Threatened by Someone? Not on file Does Anyone Keep You from Co ntacting Others or Doint Things Outside the Home? Not on file 08/13/2023 Physical Sign of Abuse Present Not on file 0 08/13/2023 Housing Stability Answer Date Recorded Current Living Arrangements Not on file 07/18 Potentially Unsafe Housing Conditions Not on mendoza e 08/13/2023 Family and Community Support Answer Andrew e Recorded Help with Day-to-Day Activities Not on file 08/13/2023 Lonely or Isolated Not on file 08/13/2023 Employment Answer Date Recorded Do you want help finding or keeping work or a hina b? Not on file 08/13/2023 Disabilities Answer Date Recorded Concentrating, Remembering, or Making Decisions Difficulty Not on file 08/13/2023 Doing Errands Independently Difficulty Not on fi le 08/13/2023 Education Answer Date Recorded Help with school or training? Not on file Preferred Language Not on file 08/13/2023 Sex and Gender Information Value Date Recorded Sex Assigned at Not on file Legal Sex Male 10:55 AM EDT Gender Identity Not on file Sexual Orientation Not on file documented as of this encounter Miscellaneous Notes * Telephone Encounter - Gaby Hughes, RN - 11/15/2024 9:44 AM EDT Called and spoke with patient. He was a Thai patient and is still deciding if he is going to continue care at our office. He states he will call me in a few days to let me know but did verbalize understanding about his outstanding lab orders and stated he will try to get these done in the next week. documented in this encounter Plan of Treatment Not on file documented as of this encounter Visit Diagnoses Not on filedocumented in this encounter Care Teams Stitching Machine Operator Relationship Specialty Start Date End Date Marvel Avalos MD [address] [facility] [address] [place] [address] PCP - General Internal Medicine 12/12/23 documented as of this encounter
--- OUTSIDE RECORDS SUMMARY | 2024-12-18 16:23 | XMS_ITS | Clinical Summary ---
Author Organization [facility] ystem Address [address] [place] [address] Care Team Providers Care Etl Tester Name Role Phone Marvel Avalos MD Primary Care Provider [phone] Allergies No known active allergies Medications amLODIPine (NORVASC) 5 MG tablet Take 1 tablet by mouth Daily. Active allopurinol (ZYLOPRIM) 300 MG tablet Take 1 tablet by mouth Daily. Active lisinopril (PRINIVIL,ZESTR IL) 10 MG tablet Take 1 tablet by mouth Daily. Active meloxicam (MOBIC) 15 MG tablet Take 1 tablet by mouth Daily. Take 1 tablet by oral route every day 90 tablet 1 12/21/2023 Active methylPREDNISol one (MEDROL) 4 MG dose pack Take as directed on package instructions. 1 each 1 12/21/2023 Active hydroxychloroqu ine (PLAQUENIL) 200 MG tablet Take 1 tablet by mouth 2 (Two) Times a Day. 60 tablet 1 08/14/2024 Active Active Problems Problem Noted Date Diagnosed Date Rheumatoid arthritis involvi ng multiple sites with positive rheumatoid factor 01/25/2024 Seronegative rheumatoid arthritis 01/25/2024 Assessment & Plan (01/25/2024 11:07 AM EDT): He has pain in the ankles, mcp, pip joints. Reports mcp swelling. Concerning for inflammatory arthritis. S/p Advil, Aleve, Nabumetone, Sulindac. Taking ibuprofen as needed 800mg. CCP negative , CRP normal, ESR normal, RF3 negative 02/06 X-ray of both hands compared to 11/15/2016: 02/06 The findings of narrowing and a medial hook on the 3rd MCP's are consistent with a seronegative inflammatory arthritis, calcium pyrophosphate deposition disease or trauma. Some progression since 2017 as described. AM stiffness has decreased from 2 hours to 30 minutes on current meds. Minimal pain and swelling. Plan: Continue Plaquenil. He is significantly improved. Continue meloxicam 7.5mg twice daily. NO IBUPROFEN WHILE TAKING MELOXICAM. If BP is 150/90 or greater consistently, he will needs to stop nsaids. BP per pt is normally 130/80, but he choked this morning. Positive LIZA (antinuclear antibody) 01/25/2024 Assessment & Plan (01/25/2024 11:06 AM EDT): 1:80. Usually do not see disease activity with this. Secondary serologies are negative. No signs or sx of lupus other than reporting sx that could be inflammatory arthritis. Liza by IFa negative 02/06 Plan: SPF 50 +. No tanning bed NAFLD (nonalcoholic fatty liver disease) 024 Assessment & Plan (01/25/2024 11:06 AM EDT): 11/01 ALT 96, AST 102 02/06 ALT 104, AST 62. Plan: NAFLD per Dr. Dupree Has lost 40 lbs. Most recently normal. High risk medication use 01/25/2024 Assessment & Plan (01/25/2024 11:06 AM EDT): Plaquenil - well tolerated and effective. Plan: Eye exam Q 9-12 months with annual OCT - pending 07/09 CBC, CMP q 6 months 04/09 glucose 107 Osteoarthritis 12/12/2023 Encounters Date Type Department Care Team Description 11/15/2024 Telephone [facility] RHEUMATOLOGY [address] [phone] Rey Yang APRN from Last 3 Months Immunizations Immunization Administration Dates Next Due COVID-19 (UNSPECIFIED) 11/17/2019 Influenza, Unspecified 02/03/2022 Family History Medical History Relation Name Comments COPD Father Lung cancer Father Arthritis Mother Gout Mother Relation Name Status Comments Father Mother Social History Tobacco Use Types Packs/Day Years Used Date Smoking Tobacco: Former Cigarettes Smokeless Tobacco: Never Tobacco Cessation:Counseling Given: Not Answered Alcohol Use Standard Drinks/Week Comments Yes 0 [...] on file Sexual Orientation Not on file Last Filed Vital Signs Vital Sign Reading Time Taken Comments Blood Pressure 130/88 12/21/2023 8:06 AM EDT Pulse 72 12/21/2023 8:06 AM EDT Temperature 36.3 C (97.3 F) 12/21/2023 8:06 AM EDT Respiratory Rate - - Oxygen Saturation - - Inhaled Oxygen Concentration - - Weight 95.3 kg (210 lb) 12/21/2023 8:06 AM EDT Height 175.3 cm (5' 9 ) 12/21/2023 8:06 AM EDT Body Mass Index 31.01 12/21/2023 8:06 AM EDT Plan of Treatment Health Maintenance Due Date Last Done Comments Pneumococcal Vaccine 50+ (1 of 2 - PCV) 1986 COLOGUARD 2012 COLON CANCER SCREENING 5 KOBEA R SIGMOIDOSCOPY 2012 COLONOSCOPY [address] CAN[address] SCREENING 2012 CT COLONOGRAPHY 2012 FECAL OCCULT BLOOD TEST 2012 FIT Testing (1 year) 2012 ZOSTER VACCINE (1 of 2) 2017 ANNUAL PHYSICAL 11/08/2023 HEPATITIS C SCREENING 11/08/2023 COVID-19 Vaccine (3 - 2023-2 5 season) 2023 12/10/2020, 11/17/2019 INFLUENZA VACCINE 01/16/2025 02/03/2022, , 01/20/2017, Additional history exists TDAP/TD VACCINES (2 - Td or Tdap) 02/06/2030 020 Insurance [employer] Care Teams Etl Tester Relationship Specialty Start Date End Date Marvel Avalos MD [address] [facility] [address] [place] [address] PCP - General Internal Medicine 12/12/23
== END 2024-12-18 23:59 | disposition home or self-care (01) ==
LOC: RAD 16:22
PROVIDERS: PCP Internal Medicine; Visit Provider Internal Medicine Rheumatology
DX: M85.841 Other specified disorders of bone density and structure, right hand (principal); M79.5 Residual foreign body in soft tissue; M05.40 Rheumatoid myopathy with rheumatoid arthritis of unspecified site; M10.9 Gout, unspecified; R93.6 Abnormal findings on diagnostic imaging of limbs
CPT/HCPCS: 73130